=== PATIENT | female | born 1950 | race Caucasian/White ===

== ENCOUNTER 2019-01-30 08:58 | Day surgery (SDC) | payer MEDICARE ==
[2019-01-28 17:05] VITALS: BMI 36.8
[~2019-01-30 08:58] MED LIST: LACTATED RINGERS 1,000 ML IV SCH; LIDOCAINE 1% 20 ML VIAL (10MG/ML) FOR IV START INTRADERMA PRN
--- NOTE | 2019-01-30 10:00 | P.GSHP ---
History of Present Illness H&P Date: 01/30/19 CHIEF COMPLAINT: Colon screen HISTORY OF PRESENT ILLNESS: The patient is a 68-year-old female who presents for colon screen. Lower endoscopy was offered for further evaluation and management. PAST MEDICAL HISTORY: Please see list. PAST SURGICAL HISTORY: Please see list. MEDICATIONS: Please see list. ALLERGIES: Please see list. SOCIAL HISTORY: No illicit drug use FAMILY HISTORY: No reports of Crohn disease or ulcerative colitis. REVIEW OF ORGAN SYSTEMS: CONSTITUTIONAL: No reports of fevers or chills. PHYSICAL EXAM: VITAL SIGNS: Stable GENERAL: Well-developed pleasant in no acute distress. HEENT: No scleral icterus. Extraocular movements grossly intact. Moist buccal mucosa. NECK: Supple without lymphadenopathy. CHEST: Unlabored respirations. Equal bilateral excursions. CARDIOVASCULAR: Regular rate and rhythm. Distal 2+ pulses. ABDOMEN: Soft, nontender, nondistended. MUSCULOSKELETAL: No clubbing, cyanosis, or edema. ASSESSMENT: 1. Colon screen. PLAN: 1. Recommend proceeding with a lower endoscopy Past Medical History Past Medical History: Asthma, Cancer, CVA/TIA, Fibromyalgia, GERD/Reflux Additional Past Medical History / Comment(s): stroke age 41, TIA age 43-no residual effects, hx cervical cancer History of Any Multi-Drug Resistant Organisms: None Reported Past Surgical History: Hysterectomy, Orthopedic Surgery Additional Past Surgical History / Comment(s): rosana oophorectomy, sinus surgery, heel spur left foot, cyst removed from breast amd vagina, Past Anesthesia/Blood Transfusion Reactions: Previous Problems w/ Anesthesia Additional Past Anesthesia/Blood Transfusion Reaction / Comment(s): "takes a while to wake up" Smoking Status: Former smoker - Past Family History Mother Family Medical History: Cancer Sister(s) Family Medical History: Cancer, Deep Vein Thrombosis (DVT) Medications and Allergies Home Medications Medication Instructions Recorded Confirmed Type Aspirin [Adult Low Dose Aspirin EC] 81 mg PO HS 01/28/19 01/28/19 History Cyanocobalamin (Vitamin B-12) 1,000 mcg PO DAILY 01/28/19 01/28/19 History [Vitamin B-12] Fiber Pills 5 tab PO BID 01/28/19 01/28/19 History Gabapentin [Neurontin] 100 mg PO HS 01/28/19 01/28/19 History Lansoprazole [Prevacid] 30 mg PO DAILY 01/28/19 01/28/19 History Allergies Allergy/AdvReac Type Severity Reaction Status Date / Time No Known Allergies Allergy Verified 01/28/19 16:53
[2019-01-30] MEDS ORDERED: PROPOFOL 10 MG/ML 20 ML VIAL IV ONE (10:03)
--- NOTE | 2019-01-30 10:33 | P.PCN ---
Date of Procedure: 01/30/19 Description of Procedure: PREOPERATIVE DIAGNOSIS: Colonoscopy screening. Family history colon polyps POSTOPERATIVE DIAGNOSIS: Colonoscopy screening. Family history colon polyps Diverticulosis, sigmoid, severe OPERATION: Colonoscopy to the ileocecal valve and appendiceal orifice. SURGEON: Marsha Nicole MD. ANESTHESIA: MAC. INDICATIONS: The patient is a 68-year-old female who presents for colonoscopy screening. Last colonoscopy 10 years ago. Benefits and risks were described and informed consent was obtained. DESCRIPTION OF PROCEDURE: The patient had undergone Suprep. She had been brought into the operating room and laid in the left lateral decubitus position. After adequate intravenous sedation, the rectum was examined with 2% lidocaine jelly. External hemorrhoids were encountered. The rectal tone was within normal limits. No lesions were palpated in the rectal vault. An Olympus colonoscope was initially used however switched to a pediatric colonoscope for severe redundant sigmoid colon. The scope was advanced until the ileocecal valve and appendiceal orifice were clearly viewed. The prep was excellent with clear visualization of the mucosal folds. The scope was removed with visualization of each mucosal fold. Severe scattered diverticulosis was encountered. No colonic polyps were found. No evidence of focal colitis was found. Retroflexion of the scope demonstrated grade 1 internal hemorrhoids without active bleeding or inflammation. The colon was desufflated. The patient had tolerated the procedure well. Withdrawal time was over 6 minutes. FINDINGS: Aronchick preparation quality scale 1 (1-5) Internal hemorrhoids, grade 1 External prolapsed hemorrhoids, grade 1 Severe redundant sigmoid colon Moderate to severe sigmoid diverticulosis No arteriovenous malformations. No adenomatous polyps. No focal colitis. RECOMMENDATIONS: Lower endoscopy in 5 years, 2023 for family history of colon polyps Plan - Discharge Summary Discharge Rx Participant: No New Discharge Prescriptions: No Action Lansoprazole [Prevacid] 30 mg PO DAILY Gabapentin [Neurontin] 100 mg PO HS Fiber Pills 5 tab PO BID Cyanocobalamin (Vitamin B-12) [Vitamin B-12] 1,000 mcg PO DAILY Aspirin [Adult Low Dose Aspirin EC] 81 mg PO HS Discharge Medication List Aspirin [Adult Low Dose Aspirin EC] 81 mg PO HS 01/28/19 [History] Cyanocobalamin (Vitamin B-12) [Vitamin B-12] 1,000 mcg PO DAILY 01/28/19 [History] Fiber Pills 5 tab PO BID 01/28/19 [History] Gabapentin [Neurontin] 100 mg PO HS 01/28/19 [History] Lansoprazole [Prevacid] 30 mg PO DAILY 01/28/19 [History] Follow up Appointment(s)/Referral(s): Marsha Nicole MD [STAFF PHYSICIAN] - As Needed Patient Instructions/Handouts: Diverticulosis Diet (GEN), Diverticulosis (ED) Activity/Diet/Wound Care/Special Instructions: Repeat colonoscopy in 5 years2023 Discharge Disposition: HOME SELF-CARE
[2019-01-30 10:35] VITALS: RESP 16
[2019-01-30 11:03] VITALS: BP 121/67; PULSE 56
== END 2019-01-30 11:21 | disposition home or self-care (01) ==
LOC: ORWHC2ENDO 08:58
PROVIDERS: ATTEND Surgery Plastic and Reconstructive Surgery
DX: Z12.11 Encounter for screening for malignant neoplasm of colon (principal); K57.30 Diverticulosis of large intestine without perforation or abscess without bleeding; K64.8 Other hemorrhoids; Z83.71 Family history of colonic polyps; J45.909 Unspecified asthma, uncomplicated; K21.9 Gastro-esophageal reflux disease without esophagitis; M79.7 Fibromyalgia; Z79.82 Long term (current) use of aspirin; Z86.73 Personal history of transient ischemic attack (TIA), and cerebral infarction without residual deficits; Z87.891 Personal history of nicotine dependence; Z85.41 Personal history of malignant neoplasm of cervix uteri; Z79.899 Other long term (current) drug therapy
CPT/HCPCS: G0105; J2704

== ENCOUNTER 2020-11-06 08:21 | Day surgery (SDC) | payer MEDICARE ==
[2020-11-05 08:27] VITALS: BMI 33.4
[~2020-11-06 08:21] MED LIST changes: -LIDOCAINE 1% 20 ML VIAL (10MG/ML) FOR IV START INTRADERMA PRN
[2020-11-06 09:05] VITALS: RESP 16; TEMP 97.8
[2020-11-06] MEDS ORDERED: PROPOFOL 10 MG/ML 20 ML VIAL IV ONE (09:33)
[2020-11-06] MEDS ORDERED: LIDOCAINE 1% INJ 10MG/ML (20 ML MDV) ONE (09:33)
--- NOTE | 2020-11-06 09:45 | P.PCN ---
Date of Procedure: 11/06/20 Procedure(s) Performed: BRIEF HISTORY: Patient is a 70-year-old, pleasant, female scheduled for an upper endoscopy as a part of evaluation of reflux and history of GERD for the last several years duration. She was started on pantoprazole 40 mg daily recently PROCEDURE PERFORMED: Esophagogastroduodenoscopy. PREOPERATIVE DIAGNOSIS: long-standing history of GERD IV sedation per anesthesia. PROCEDURE: After informed consent was obtained, the patient was brought into the endoscopy unit. IV sedation was administered by Anesthesia under continuous monitoring. Initially the Olympus GIF-140 video endoscope was inserted into the mouth. Esophagus intubated without any difficulty. It was gradually advanced into the stomach and duodenum and carefully examined. The bulb and the second part of the duodenum appeared normal. The scope at this time was withdrawn to the stomach, adequately insufflated with air, and upon careful examination, mucosa of the antrum had scattered areas of erythema which was biopsied. Mucosa of the body, cardia and the fundus appeared normal. The scope was then withdrawn into the esophagus. The GE junction was located at 37 cm from the incisors. Small sliding-type a little hernia hernia noted. The esophagus appeared normal. There were no erosions or ulcerations seen and the patient tolerated the procedure well. IMPRESSION: 1. Mild antral gastritis. 2. Small sliding-type well hernia but no evidence of esophagitis. RECOMMENDATIONS: The findings of this examination were discussed with the patient as well as a family. She was advised to follow with the biopsy results. She will continue with Protonix 40 mg daily and continue to follow antireflux measures.
[2020-11-06 10:12] VITALS: BP 119/79; PULSE 66
== END 2020-11-06 10:26 | disposition home or self-care (01) ==
LOC: ORWHC2ENDO 08:21
PROVIDERS: ATTEND Internal Medicine Gastroenterology
DX: K21.9 Gastro-esophageal reflux disease without esophagitis (principal); K29.50 Unspecified chronic gastritis without bleeding; Z79.82 Long term (current) use of aspirin; Z79.899 Other long term (current) drug therapy; J45.909 Unspecified asthma, uncomplicated; Z87.891 Personal history of nicotine dependence; Z86.73 Personal history of transient ischemic attack (TIA), and cerebral infarction without residual deficits
CPT/HCPCS: 88305; 43239; J2001; J2704

== ENCOUNTER → 2021-01-17 | Outpatient (CLI) | payer MEDICARE ==
--- NOTE | 2021-01-17 09:54 | MR ---
EXAMINATION TYPE: MR brain wo con DATE OF EXAM: 01/17/2021 COMPARISON: CT brain October 26, 2011 HISTORY: Dizziness. TECHNIQUE: Multiplanar, multisequence imaging of the brain and brainstem is performed without IV cont rast. FINDINGS: Diffusion weighted images demonstrate no evidence of a recent infarct or other diffusion abnormality. The ventricular system and cisternal spaces are normal in size and appearance. The brain volume is a ge appropriate. Occasional scattered focus of T2 hyperintensity, less than 5 lesions are present. Midline structures demonstrate normal morphology. The craniocervical junction appears within normal limits. Normal vascular flow voids are present. The visualized sinuses are clear and the globes are i ntact. Patchy increased T2 signal right mastoid air cells are now present. IMPRESSION: New increased fluid signal right mastoid air cells raises concern for right-sided mastoid itis, correlate clinically.
== END | disposition home or self-care (01) ==
LOC: RADMRIMAIN 09:13
PROVIDERS: ATTEND Family Medicine
DX: R42 Dizziness and giddiness (principal); R03.0 Elevated blood-pressure reading, without diagnosis of hypertension
CPT/HCPCS: 70551

== ENCOUNTER → 2021-01-21 | Outpatient (CLI) | payer MEDICARE ==
--- NOTE | 2021-01-22 10:31 | ECHOF ---
Referral Reason:R07.9 chest pain, unspecified MEASUREMENTS -------- HEIGHT: 127.0 cm WEIGHT: 72.6 kg BP: RVIDd: 2.4 cm (< 3.3) IVSd: 1.0 cm (0.6 - 1.1) LVIDd: 2.9 cm (3.9 - 5.3) LVPWd: 1.1 cm (0.6 - 1.1) IVSs: 1.4 cm LVIDs: 1.7 cm LVPWs: 1.7 cm LAESV Index (A-L): 23.05 ml/m Ao Diam: 2.7 cm (2.0 - 3.7) AV Cusp: 1.3 cm (1.5 - 2.6) LA Diam: 2.5 cm (2.7 - 3.8) MV EXCURSION: 12.451 mm (> 18.000) MV EF SLOPE: 54 mm/s (70 - 150) EPSS: 0.5 cm MV E Lee: 0.86 m/s MV DecT: 178 ms MV A Lee: 0.84 m/s MV E/A Ratio: 1.02 RAP: 5.00 mmHg RVSP: 17.98 mmHg FINDINGS -------- This was a technically good study. The left ventricular size is normal. Left ventricular wall thickness is normal. Overall left vent ricular systolic function is normal with, an EF between 55 - 60 %. Normal LAP. Grade 1 Diastolic Dy sfunction. The right ventricle is normal in size. The left atrial size is normal. Normal LA size by volume 22+/-6 ml/m2. The right atrial size is normal. The aortic valve is trileaflet and appears structurally normal. The mitral valve is normal. Mild mitral regurgitation is present. The tricuspid valve appears structurally normal. Mild tricuspid regurgitation present. Right vent ricular systolic pressure is normal at < 35 mmHg. There is no pulmonic regurgitation present. The aortic root size is normal. Normal inferior vena cava with normal inspiratory collapse consistent with estimated right atrial pre ssure of 5 mmHg. There is no pericardial effusion. CONCLUSIONS -------- 1. The left ventricular size is normal. 2. Left ventricular wall thickness is normal. 3. Overall left ventricular systolic function is normal with, an EF between 55 - 60 %. 4. Normal LAP. Grade 1 Diastolic Dysfunction. 5. Mild mitral regurgitation is present. 6. Mild tricuspid regurgitation present. 7. There is no pericardial effusion. LOCOMOTIVE ENGINEER: Nataly Mcfadden RDCS
== END | disposition home or self-care (01) ==
LOC: RADECHMAIN 14:45
PROVIDERS: ATTEND Family Medicine
DX: I07.1 Rheumatic tricuspid insufficiency (principal); I34.0 Nonrheumatic mitral (valve) insufficiency
CPT/HCPCS: 93306

== ENCOUNTER → 2021-09-22 | Outpatient (CLI) | payer MEDICARE ==
--- NOTE | 2021-09-23 08:05 | CT ---
EXAMINATION TYPE: CT abdomen pelvis wo/w con DATE OF EXAM: 09/22/2021 COMPARISON: None HISTORY: fistula of intestine CT DLP: 2391 mGycm CONTRAST: CT scan of the abdomen and pelvis is performed with Oral Contrast and with IV Contrast, patient injec kyra with 100ml mL of Isovue 300. FINDINGS: LUNG BASES-: No visible nodule. No infiltrate. LIVER/GB: No calcified gallstones. No space occupying hepatic lesion. Biliary tree is of normal ca liber. PANCREAS: No inflammation. No distinct mass. SPLEEN: No splenic enlargement. No lesion seen. ADRENALS: No nodule. No thickening. KIDNEYS/BLADDER: No hydronephrosis. No nephrolithiasis. 1.5 cm left renal cyst. Urinary bladder ekta ssly unremarkable. BOWEL: Normal appendix. There is a large fixed hiatal hernia. There is an adherent loop of sigmoid c olon with the urinary bladder to the left of midline at its dome. There is associated wall thickening of the urinary bladder wall however I do not see air or contrast within the urinary bladder at this time. Developing fistula is difficult to exclude. No evidence for active diverticulitis. Sigmoid dive rticulosis. Gastrointestinal tract is of normal caliber. Appendix not clearly visualized. GENITAL ORGANS: No gross abnormality. LYMPH NODES: No greater than 1cm abdominal or pelvic lymph nodes are appreciated. AORTA: No significant abnormality. OSSEOUS STRUCTURES: No significant abnormality is seen. OTHER: No significant additional abnormality is seen. IMPRESSION: 1. There is an adherent loop of sigmoid colon with the urinary bladder to the left of midline at its dome. There is associated wall thickening of the urinary bladder wall however I do not see air or con trast within the urinary bladder at this time. Developing fistula is difficult to exclude. 2. Large fixed hiatal hernia.
== END | disposition home or self-care (01) ==
LOC: RADCTMAIN 12:47
PROVIDERS: ATTEND Internal Medicine Gastroenterology
DX: Z01.818 Encounter for other preprocedural examination (principal); K63.2 Fistula of intestine
CPT/HCPCS: 82565; 84520; 74178; 36415; Q9967

== ENCOUNTER 2021-11-22 12:44 | Day surgery (SDC) | payer MEDICARE ==
[~2021-11-22 12:44] MED LIST changes: +LIDOCAINE 1% (10MG/ML) FOR IV START INTRADERMA PRN
[2021-11-22 13:14] VITALS: TEMP 98
[2021-11-22] MEDS ORDERED: LIDOCAINE 2% INJ 20 MG/ML (2 ML VIAL) ONE (13:53)
[2021-11-22] MEDS ORDERED: PROPOFOL 10 MG/ML 20 ML VIAL IV ONE (13:53)
--- NOTE | 2021-11-22 14:14 | P.GSHP ---
History of Present Illness H&P Date: 11/22/21 Chief Complaint: ,Gerd, Diverticulitis This 71-year-old female presents today for EGD and colonoscopy. Issues with GERD and diverticulitis. Past Medical History Past Medical History: Asthma, Cancer, CVA/TIA, Fibromyalgia, GERD/Reflux, Osteoarthritis (OA) Additional Past Medical History / Comment(s): problems swallowing with freq. burping, hx. diverticulitis-hospitalized in May in [place], "they found a gr owth" per pt., rectal bldg sometimes & has found "feces" in urine @times,. stroke age 41, TIA age 43-no residual effects, hx cervical cancer History of Any Multi-Drug Resistant Organisms: None Reported Past Surgical History: Hysterectomy, Orthopedic Surgery Additional Past Surgical History / Comment(s): rosana oophorectomy, sinus surgery, heel spur left foot, cyst removed from breast and vagina, colonoscopy, Past Anesthesia/Blood Transfusion Reactions: Previous Problems w/ Anesthesia Additional Past Anesthesia/Blood Transfusion Reaction / Comment(s): "takes a while to wake up" Smoking Status: Former smoker - Past Family History Mother Family Medical History: Cancer Sister(s) Family Medical History: Cancer, Deep Vein Thrombosis (DVT) Medications and Allergies Home Medications Medication Instructions Recorded Confirmed Type Aspirin [Adult Low Dose Aspirin EC] 81 mg PO HS 01/28/19 11/22/21 History Fiber Pills 5 tab PO BID 01/28/19 11/22/21 History Gabapentin [Neurontin] 100 mg PO TID 01/28/19 11/22/21 History Calcium + Vit D3 1,200 mg PO BID 11/05/20 11/22/21 History Pantoprazole Sodium 40 mg PO DAILY 11/05/20 11/22/21 History Vitamin B Complex 1 each PO DAILY 11/05/20 11/22/21 History Allergies Allergy/AdvReac Type Severity Reaction Status Date / Time No Known Allergies Allergy Verified 11/22/21 13:07 Surgical - Exam Vital Signs Temp Pulse Resp BP Pulse Ox 98.0 F 81 16 172/81 99 11/22/21 13:12 11/22/21 13:12 11/22/21 13:12 11/22/21 13:12 11/22/21 13:12 - General well developed, well nourished, no distress - Eyes PERRL - ENT normal pinna - Neck no masses - Respiratory normal expansion - Cardiovascular Rhythm: regular - Abdomen Abdomen: soft, non tender Assessment and Plan Assessment: Gerd, diverticulitis. We'll perform EGD and colonoscopy
--- NOTE | 2021-11-22 14:22 | P.OP ---
Date of Procedure: 11/22/21 Preoperative Diagnosis: diverticulitis GERD Postoperative Diagnosis: Gastritis Hiatal hernia Esophagitis Diverticulitis Procedure(s) Performed: egd Colonoscopy Anesthesia: MAC Surgeon: Guido Shabazz Pathology: other (antrum,esophagus) Condition: stable Disposition: PACU Description of Procedure: Based on the endoscopy table in the lateral position. She received IV sedation. The gastroscope placed oropharynx passed in the esophagus and stomach. Scope was then placed through the pylorus. First and second portion of the duodenum appeared normal. Scope was then brought back the antrum was mildly inflamed. A biopsies performed. The scope was then retroflexed and there was a moderate size hiatal hernia. The GE junction was at 38 cm. The distal esophagus inflamed this area is biopsied. The proximal esophagus appeared normal. Scope withdrawn for patient. Next digital rectal exam was performed. This revealed no ebonized. Flexible colonoscope was then placed patient anus passed with colon. Scope was passed beyond the left colon secondary to tortuosity valve. Scope was brought back in the sigmoid colon there is extensive diverticular changes. The scope was brought back the rectum and this appeared normal. Scope withdrawn for patient.
[2021-11-22 14:44] VITALS: BP 122/69; PULSE 78; RESP 20
== END 2021-11-22 15:17 ==
LOC: ORWHC2ENDO 12:44
PROVIDERS: ATTEND Surgery
DX: K21.9 Gastro-esophageal reflux disease without esophagitis (principal); K29.50 Unspecified chronic gastritis without bleeding; K44.9 Diaphragmatic hernia without obstruction or gangrene; K57.30 Diverticulosis of large intestine without perforation or abscess without bleeding; J45.909 Unspecified asthma, uncomplicated; M19.90 Unspecified osteoarthritis, unspecified site; M79.7 Fibromyalgia; Z87.891 Personal history of nicotine dependence; Z86.73 Personal history of transient ischemic attack (TIA), and cerebral infarction without residual deficits; Z79.82 Long term (current) use of aspirin; Z79.899 Other long term (current) drug therapy
CPT/HCPCS: 88305; 45378; 43239; J2704; J2001

== ENCOUNTER → 2021-11-30 | Outpatient (CLI) | payer MEDICARE | END | disposition home or self-care (01) | LOC: LABWHC1 15:32 | PROVIDERS: ATTEND Surgery | DX: Z53.9 Procedure and treatment not carried out, unspecified reason (principal) ==

== ENCOUNTER 2021-12-06 07:11 | Observation (INO) | payer MEDICARE ==
[2021-11-30 16:10] LABS: Basophils # (A) 0.1 k/uL (0-0.2); Basophils % (A) 1 %; Eosinophils # (A) 0.2 k/uL (0-0.7); Eosinophils % (A) 2 %; HCT 37.6 % (34.0-46.0); HGB 12.5 gm/dL (11.4-16.0); Lymphocytes # (A) 2.1 k/uL (1.0-4.8); Lymphocytes % (A) 25 %; MCH 32.6 pg (25.0-35.0); MCHC 33.3 g/dL (31.0-37.0); MCV 97.9 fL (80.0-100.0); Mean Platelet Volume 7.3; Monocytes # (A) 0.5 k/uL (0-1.0); Monocytes % (A) 5 %; Neutrophils # (A) 5.4 k/uL (1.3-7.7); Neutrophils % (A) 65 %; Platelet Count 261 k/uL (150-450); RBC 3.84 m/uL (3.80-5.40); RDW 12.3 % (11.5-15.5); WBC 8.3 k/uL (3.8-10.6)
[~2021-12-06 07:11] MED LIST changes: +ACETAMINOPHEN TAB 500 MG TAB PO PRN; +HEPARIN SODIUM,PORCINE/PF 5,000 UNIT/0.5 ML SYRINGE SQ PRN; -LACTATED RINGERS 1,000 ML IV SCH; -LIDOCAINE 1% (10MG/ML) FOR IV START INTRADERMA PRN
[2021-12-06] MEDS ORDERED: ONDANSETRON 4 MG/2 ML VIAL IVP ONE (07:31)
[2021-12-06] MEDS ORDERED: LIDOCAINE 1% (10MG/ML) FOR IV START INTRADERMA PRN (07:31)
[2021-12-06] MEDS ORDERED: DEXAMETHASONE SOD PHOSPHATE 4 MG/ML 1 ML VIAL IV ONE (07:31)
[2021-12-06] MEDS ORDERED: HYDROmorphone 0.5 MG/0.5 ML SYRINGE IVP PRN (07:31)
[2021-12-06] MEDS: LACTATED RINGERS 1,000 ML IV SCH (07:51)
--- NOTE | 2021-12-06 08:49 | P.GSHP ---
History of Present Illness H&P Date: 12/06/21 Chief Complaint: GERD This a 8-year-old female who on standing history of GERD. Patient rents today for laparoscopic Tahira fundoplication. Patient's aware the risks of surgery including recurrent GERD symptoms dysphagia and gastric injury Past Medical History Past Medical History: Asthma, Cancer, CVA/TIA, Fibromyalgia, GERD/Reflux, Osteoarthritis (OA) Additional Past Medical History / Comment(s): occ diff swallowing with freq. burping, hx. diverticulitis, "they found a growth on bowels" per pt., rectal bleeding sometimes & has found "feces" in urine @times, TIA x 2 age 43-no residual effects, hx cervical cancer, hx migraines, hiatal hernia, hx ulcer age 22, osteoporosis, History of Any Multi-Drug Resistant Organisms: None Reported Past Surgical History: Breast Surgery, Hysterectomy, Orthopedic Surgery Additional Past Surgical History / Comment(s): rosana oophorectomy, sinus surgery, heel spur left foot, cyst removed from rt breast and vagina, colonoscopy,EGD Past Anesthesia/Blood Transfusion Reactions: Previous Problems w/ Anesthesia Additional Past Anesthesia/Blood Transfusion Reaction / Comment(s): "takes a while to wake up" Smoking Status: Former smoker - Past Family History Mother Family Medical History: Cancer Additional Family Medical History / Comment(s): breast Sister(s) Family Medical History: Cancer Additional Family Medical History / Comment(s): breast Brother(s) Family Medical History: Deep Vein Thrombosis (DVT) Medications and Allergies Home Medications Medication Instructions Recorded Confirmed Type Aspirin [Adult Low Dose Aspirin EC] 81 mg PO HS 01/28/19 12/01/21 History Gabapentin [Neurontin] 100 mg PO TID PRN 01/28/19 12/06/21 History Pantoprazole Sodium 40 mg PO DAILY 11/05/20 12/06/21 History Vitamin B Complex 1 each PO DAILY 11/05/20 12/06/21 History Budesonide-Formot 160-4.5 Mcg 2 puff INHALATION BID PRN 12/01/21 12/06/21 History [Symbicort 160-4.5 Mcg Inhaler] Calcium Carbonate [Calcium] 1,200 mg PO BID 12/01/21 12/06/21 History Cholecalciferol [Vitamin D3 (125 125 mcg PO DAILY 12/01/21 12/06/21 History Mcg = 5000 Iu)] Fiber Cap 600 mg PO BID 12/01/21 12/06/21 History Allergies Allergy/AdvReac Type Severity Reaction Status Date / Time No Known Allergies Allergy Verified 12/06/21 07:31 Surgical - Exam Vital Signs Temp Pulse Resp BP Pulse Ox 98.4 F 71 16 163/77 97 12/06/21 07:37 12/06/21 07:37 12/06/21 07:37 12/06/21 07:37 12/06/21 07:37 - General well developed, well nourished, no distress - Eyes PERRL - ENT normal pinna - Neck no masses - Respiratory normal expansion - Cardiovascular Rhythm: regular - Abdomen Abdomen: soft, non tender Results - Labs 11/30/21 15:47 Assessment and Plan Assessment: GERD. We'll perform laparoscopic Tahira fundoplication.
[2021-12-06] MEDS ORDERED: MIDAZOLAM 2 MG/2 ML VIAL ONE (09:11)
[2021-12-06] MEDS ORDERED: fentaNYL (PF) 50 MCG/ML 2 ML AMP ONE (09:11)
[2021-12-06] MEDS ORDERED: LIDOCAINE 2% INJ 20 MG/ML (2 ML VIAL) ONE (09:11)
[2021-12-06] MEDS ORDERED: NEOSTIGMINE 1 MG/ML 10 ML VIAL ONE (09:11)
[2021-12-06] MEDS ORDERED: ROCURONIUM 10 MG/ML (5 ML VIAL) IV ONE (09:11)
[2021-12-06] MEDS ORDERED: SUCCINYLCHOLINE CHLORIDE 200 MG/10 ML VIAL IV ONE (09:11)
[2021-12-06] MEDS ORDERED: GLYCOPYRROLATE 0.2 MG/ML 2 ML VIAL ONE (09:11)
[2021-12-06] MEDS ORDERED: ePHEDrine 50 MG/ML 1 ML VIAL ONE (09:11)
[2021-12-06] MEDS ORDERED: PROPOFOL 10 MG/ML 20 ML VIAL IV ONE (09:11)
[2021-12-06] MEDS ORDERED: BUPIVACAIN-EPI 0.25%-1:200,000 30 ML VIAL SQ ONE (09:38)
[2021-12-06] MEDS ORDERED: ONDANSETRON 4 MG/2 ML VIAL IVP PRN (10:22)
--- NOTE | 2021-12-06 10:22 | P.OP ---
Date of Procedure: 12/06/21 Preoperative Diagnosis: GERD Postoperative Diagnosis: GERD Procedure(s) Performed: Laparoscopic Tahira fundal plication Anesthesia: GARRETT Surgeon: Guido Shabazz Estimated Blood Loss (ml): 5 Pathology: none sent Condition: stable Disposition: PACU Description of Procedure: Horacio patient was placed on the operating table in the supine position. The patient received general anesthesia. And was placed in dorsal lithotomy position. The patient was prepped and draped in the usual sterile fashion. The skin incision sites were anesthetized with 1% local Xylocaine. The skin was incised in the left periumbilical area and then using a blade less 5 mm trocar under direct visualization panel cavity was entered. After adequate insufflation the laparoscope was then placed into the peritoneal cavity. Next a 5 mm trochars placed in the right epigastric position. Another 5 millimeter trocar the right lateral position. Another 5 millimeter trocar in the left lateral position a 5 mm trocar is placed in the left epigastric position. And then the initial 5 mm trocar was exchanged for a 10 mm trocar. The left lateral lobe liver was retracted. The hernia was seen. The crural defect was then dissected using the Harmonic scissors device. A 360 crural dissection was performed the esophagus stomach was reduced back into the peritoneal Cavity. The crural defect was then closed using 2-0 Ethibond suture. Next the fundus of the stomach was mobilized using the Muddy scissors device. and then a 58- Portuguese bougie dilator was placed oropharynx passed into the esophagus and stomach the fundal plication wrap was then performed by grasping the fundus pos teriorly and bringing it around the esophagus and stomach fundoplication was then performed using 2-0 Ethibond suture. Care was taken that the fundal location rested over top of the intra-abdominal esophagus. There was no injury seen to the stomach or esophagus. The dilator was then withdrawn. The abdomen was irrigated there is no bleeding seen. The trochars were then withdrawn and then skin incision sites were closed using 3-0 Monocryl suture Steri-Strips are applied. Patient thought procedure well and sent to recovery room in stable condition.
[2021-12-06] MEDS ORDERED: KETOROLAC 15 MG/ML 1 ML VIAL IVP ONE (12:10)
[2021-12-06] MEDS: D5-0.45% NACL WITH KCL 20MEQ/L 1,000 ML IV SCH ×2 (13:28→21:27)
[2021-12-06] MEDS: HYDROmorphone 1 MG/ML 1 ML SYRINGE IVP PRN ×3 (13:28→21:25)
[2021-12-06 16:29] VITALS: BMI 33.5
--- NOTE | 2021-12-06 17:37 | P.CONS ---
History of Present Illness - Reason for Consult Consult date: 12/06/21 fibromyalgia Requesting physician: Guido Shabazz - Chief Complaint GERD - History of Present Illness Patient is a 71-year-old female history of GERD, fibromyalgia, and migraine headaches who presented for Tahira fundoplication. Patient seen and examined at bedside. She is having significant feelings of chest fullness and belching since surgery. She feels slightly nauseated. She states she is dealing with acid reflux for years. His first follow with her primary care physician and tried multiple antacids without relief. She then saw Dr. Koch who referred her to Dr. Willams for the Tahira. She reports that she had an EGD and colonoscopy done last week. They also did found a "mass" on her bowels. She states that since her colonoscopy she has been having intermittent diarrhea. She otherwise denies any fevers, chills, she has a chronic cough which is on change. She states she does not take Symbicort regularly at home and has not used in quite some time. She denies any issues with her asthma. Pertinent positives and negatives as discussed in HPI, a complete review of systems was performed and all other systems are negative. Vital signs reviewed General: nontoxic, mild distress due to pain, appears at stated age Derm: warm, dry Head: atraumatic, normocephalic, symmetric Eyes: EOMI, no lid lag, anicteric sclera, pupils equal round reactive to light ENT: Nose and ears atraumatic, no thrush, no pharyngeal erythema Neck: No thyromegaly, no cervical lymphadenopathy, trachea midline, supple Mouth: no lip lesion, mucus membranes moist Cardiovascular: S1S2 reg, no murmur, positive posterior tibial pulse bilateral, no edema, capillary refill less than 2 seconds Lungs: Decreased bs bilateral, no rhonchi, no rales, no wheeze, no accessory m uscle use Abdominal: soft, nontender to palpation, no guarding, no appreciable organomegaly, normal bowel sounds Ext: no gross muscle atrophy, no contractures Neuro: CN II-XII grossly intact, no tremors, no focal neuro deficits. Psych: Alert, oriented, appropriate affect Assessment/Plan: Severe GERD s/p Nissina fundoplication - managemetn per surgery - on clear liquid diet Fibromyalgia - hold gabapentin for now due to nausea and eructations Ashtma without exacerbation - prn bronchdilators Obesity with BMI 33.5 - structured outaptient weight loss Colonic abnormality -Patient wishes following up with Dr. Shabazz on an outpatient basis. 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 Do not hesitate to contact us with questions. Someone can be reached from the [facility] hospitalist group all hours of the day at [phone] or via [employer]. Past Medical History Past Medical History: Asthma, Cancer, CVA/TIA, Fibromyalgia, GERD/Reflux, Osteoarthritis (OA) Additional Past Medical History / Comment(s): occ diff swallowing with freq. burping, hx. diverticulitis, "they found a growth on bowels" per pt., rectal bleeding sometimes & has found "feces" in urine @times, TIA x 2 age 43-no residual effects, hx cervical cancer, hx migraines, hiatal hernia, hx ulcer age 22, osteoporosis, History of Any Multi-Drug Resistant Organisms: None Reported Past Surgical History: Breast Surgery, Hysterectomy, Orthopedic Surgery Additional Past Surgical History / Comment(s): rosana oophorectomy, sinus surgery, heel spur left foot, cyst removed from rt breast and vagina, colonoscopy,EGD Past Anesthesia/Blood Transfusion Reactions: Previous Problems w/ Anesthesia Additional Past Anesthesia/Blood Transfusion Reaction / Comm: "takes a while to wake up" Smoking Status: Former smoker - Past Family History Mother Family Medical History: Cancer Additional Family Medical History / Comment(s): breast Sister(s) Family Medical History: Cancer Additional Family Medical History / Comment(s): breast Brother(s) Family Medical History: Deep Vein Thrombosis (DVT) Medications and Allergies Home Medications Medication Instructions Recorded Confirmed Type Aspirin [Adult Low Dose Aspirin EC] 81 mg PO HS 01/28/19 12/01/21 History Gabapentin [Neurontin] 100 mg PO TID PRN 01/28/19 12/06/21 History Pantoprazole Sodium 40 mg PO DAILY 11/05/20 12/06/21 History Vitamin B Complex 1 each PO DAILY 11/05/20 12/06/21 History Budesonide-Formot 160-4.5 Mcg 2 puff INHALATION BID PRN 12/01/21 12/06/21 History [Symbicort 160-4.5 Mcg Inhaler] Calcium Carbonate [Calcium] 1,200 mg PO BID 12/01/21 12/06/21 History Cholecalciferol [Vitamin D3 (125 125 mcg PO DAILY 12/01/21 12/06/21 History Mcg = 5000 Iu)] Fiber Cap 600 mg PO BID 12/01/21 12/06/21 History Allergies Allergy/AdvReac Type Severity Reaction Status Date / Time No Known Allergies Allergy Verified 12/06/21 07:31 Physical Exam Osteopathic Statement: *. No significant issues noted on an osteopathic structural exam other than those noted in the History and Physical/Consult. Vitals: Vital Signs Temp Pulse Pulse Resp BP BP Pulse Ox 12/06/21 14:40 58 L 18 130/74 99 12/06/21 14:25 98 18 136/77 98 12/06/21 14:10 55 L 18 124/74 99 12/06/21 13:55 57 L 18 137/74 99 12/06/21 13:40 60 16 134/83 98 12/06/21 12:50 97.9 F 57 L 18 155/85 97 12/06/21 11:45 54 L 17 146/65 100 12/06/21 11:30 78 16 149/72 97 12/06/21 11:15 53 L 16 158/70 99 12/06/21 11:00 54 L 16 155/70 95 12/06/21 10:45 67 16 156/70 100 12/06/21 10:31 97.1 F L 55 L 16 181/71 100 12/06/21 07:37 98.4 F 71 16 163/77 97 Intake and Output 12/06/21 12/06/21 12/06/21 06:59 14:59 22:59 Intake Total 750 1580 Output Total 5 Balance 745 1580 Intake: IV 750 Intake, IV Titration 1000 Amount D5-0.45% NaCl with KCl 1000 20Meq/l 1,000 ml @ 125 mls/hr IV .Q8H [facility] Rx#: [id number] Oral 580 Output: Estimated Blood Loss 5 Other: # Voids 1 Weight 72.8 kg 72.8 kg Results CBC & Chem 7: 11/30/21 15:47
[2021-12-06 19:24] VITALS: RESP 16
[2021-12-06] MEDS ORDERED: ALBUTEROL NEBULIZED 2.5 MG/3 ML INHALATION PRN (20:06)
[2021-12-07] MEDS: HYDROmorphone 1 MG/ML 1 ML SYRINGE IVP PRN ×3 (01:46→11:29)
[2021-12-07] MEDS: D5-0.45% NACL WITH KCL 20MEQ/L 1,000 ML IV SCH ×2 (05:46→14:33)
[2021-12-07] MEDS ORDERED: GABAPENTIN 100 MG CAP PO PRN (08:41)
[2021-12-07] MEDS ORDERED: ENOXAPARIN 40 MG/0.4 ML SYRINGE SQ SCH (09:00)
[2021-12-07] MEDS ORDERED: HYDROcodone/APAP 5-325MG 1 EACH TAB PO PRN (12:22)
--- NOTE | 2021-12-07 12:29 | P.DS ---
Providers Date of admission: 12/06/21 07:11 Expected date of discharge: 12/07/21 Attending physician: Guido Shabazz Consults: 12/06/21 12:12 Consult Physician Routine Consulting Provider: Shaquille Rivers Consult Reason/Comments: medical management Do you want consulting provider notified?: Yes Primary care physician: Renny [facility] Course: Discharge diagnosis 1. GERD status post laparoscopic Tahira fundoplication Hospital course This is a 71-year-old female with a known history of GERD. She is status post laparoscopic Tahira complication. She tolerated surgery well. She is tolerating liquid diet. Her pain is controlled. She is up and ambulating. She is afebrile. She is stable for discharge. Please refer to chart for any further details. Physician Immigration Consultant note has been reviewed by physician. Signing provider agrees with the documented findings, assessment, and plan of care. Patient Condition at Discharge: Stable Plan - Discharge Summary Discharge Rx Participant: Yes New Discharge Prescriptions: New HYDROcodone/APAP 5-325MG [[place] 5-325] 1 tab PO Q6HR PRN 3 Days #12 tab PRN Reason: Pain Continue Gabapentin [Neurontin] 100 mg PO TID PRN PRN Reason: Pain Aspirin [Adult Low Dose Aspirin EC] 81 mg PO HS Cholecalciferol [Vitamin D3 (125 Mcg = 5000 Iu)] 125 mcg PO DAILY Calcium Carbonate [Calcium] 1,200 mg PO BID Pantoprazole Sodium 40 mg PO DAILY Vitamin B Complex 1 each PO DAILY Fiber Cap 600 mg PO BID Budesonide-Formot 160-4.5 Mcg [Symbicort 160-4.5 Mcg Inhaler] 2 puff INHALATION BID PRN PRN Reason: sob Discharge Medication List Aspirin [Adult Low Dose Aspirin EC] 81 mg PO HS 01/28/19 [History] Gabapentin [Neurontin] 100 mg PO TID PRN 01/28/19 [History] Pantoprazole Sodium 40 mg PO DAILY 11/05/20 [History] Vitamin B Complex 1 each PO DAILY 11/05/20 [History] Budesonide-Formot 160-4.5 Mcg [Symbicort 160-4.5 Mcg Inhaler] 2 puff INHALATION BID PRN 12/01/21 [History] Calcium Carbonate [Calcium] 1,200 mg PO BID 12/01/21 [History] Cholecalciferol [Vitamin D3 (125 Mcg = 5000 Iu)] 125 mcg PO DAILY 12/01/21 [History] Fiber Cap 600 mg PO BID 12/01/21 [History] HYDROcodone/APAP 5-325MG [[place] 5-325] 1 tab PO Q6HR PRN 3 Days #12 tab 12/07/21 [Rx] Follow up Appointment(s)/Referral(s): Guido Shabazz MD [STAFF PHYSICIAN] - 1 Week Activity/Diet/Wound Care/Special Instructions: No driving while taking [place] No lifting over 10 pounds Shower daily. No soaking or tub baths for 2 weeks Very light activity until you are reevaluated at your follow up appointment with your surgeon Continue full liquid diet No straws or carbonated beverages Discharge Disposition: HOME SELF-CARE
[2021-12-07 13:24] VITALS: BP 131/70; PULSE 63; TEMP 98
[2021-12-07] MEDS: LACTATED RINGERS 1,000 ML IV SCH (14:32)
== END 2021-12-07 14:34 | disposition home or self-care (01) ==
LOC: INTOOBSV 07:11 → 2ORMAIN 07:11 → EDSTATUS 08:35 → 5NMEDONC 10:42
PROVIDERS: ADMIT Surgery; ATTEND Surgery
DX: K21.00 Gastro-esophageal reflux disease with esophagitis, without bleeding (principal); K44.9 Diaphragmatic hernia without obstruction or gangrene; R05.3 Chronic cough; M79.7 Fibromyalgia; J45.909 Unspecified asthma, uncomplicated; M19.90 Unspecified osteoarthritis, unspecified site; Z87.19 Personal history of other diseases of the digestive system; Z85.41 Personal history of malignant neoplasm of cervix uteri; Z86.73 Personal history of transient ischemic attack (TIA), and cerebral infarction without residual deficits; M81.0 Age-related osteoporosis without current pathological fracture; G43.909 Migraine, unspecified, not intractable, without status migrainosus; Z90.710 Acquired absence of both cervix and uterus; Z90.722 Acquired absence of ovaries, bilateral; Z98.890 Other specified postprocedural states; Z87.891 Personal history of nicotine dependence; Z80.3 Family history of malignant neoplasm of breast; Z82.49 Family history of ischemic heart disease and other diseases of the circulatory system; Z79.82 Long term (current) use of aspirin; Z79.51 Long term (current) use of inhaled steroids; Z79.899 Other long term (current) drug therapy
CPT/HCPCS: 85025; 93005; 43280; G0378; J2250; J0330; J1100; J2710; J0690; J2405; J1650; J3010; J1170 ×3; J1885; J2704; J1644; J2001

== ENCOUNTER → 2022-01-17 | Outpatient (CLI) | payer MEDICARE ==
[2022-01-17 14:37] LABS: Basophils # (A) 0.05 X 10*3/uL (0.00-0.10); Basophils % (A) 0.7 %; Eosinophils # (A) 0.16 X 10*3/uL (0.04-0.35); Eosinophils % (A) 2.3 %; HCT 38.8 % (37.2-46.3); HGB 12.9 g/dL (12.0-15.0); Immature Grans, Automated 0.3 %; Lymphocytes # (A) 1.87 X 10*3/uL (0.90-5.00); Lymphocytes % (A) 26.9 %; MCH 32.8 pg (27.0-32.0); MCHC 33.2 g/dL (32.0-37.0); MCV 98.7 fL (80.0-97.0); Mean Platelet Volume 10.1 fL (9.5-12.2); Monocytes # (A) 0.53 X 10*3/uL (0.20-1.00); Monocytes % (A) 7.6 %; NRBC Per 100 WBC 0 /100 WBCS (0.0-0.0); Neutrophils # (A) 4.31 X 10*3/uL (1.80-7.70); Neutrophils % (A) 62.2 %; Platelet Count 235 X 10*3/uL (140-440); RBC 3.93 X 10*6/uL (4.10-5.20); RDW 13.2 % (11.5-14.5); WBC 6.94 X 10*3/uL (4.50-10.00)
[2022-01-17 15:29] LABS: Anion Gap 10.4 mmol/L (10.00-18.00); Carbon Dioxide 26.6 mmol/L (20.0-27.5)
== END | disposition home or self-care (01) ==
LOC: LABPAT 01-14 08:09
PROVIDERS: ATTEND Surgery
DX: Z01.812 Encounter for preprocedural laboratory examination (principal); Z01.818 Encounter for other preprocedural examination; K57.32 Diverticulitis of large intestine without perforation or abscess without bleeding
CPT/HCPCS: 36415; 80051; 85025; 93005

== ENCOUNTER 2022-01-26 08:30 | Inpatient (IN) | payer MEDICARE ==
[~2022-01-26 08:30] MED LIST changes: +DEXAMETHASONE SOD PHOSPHATE 4 MG/ML 1 ML VIAL IV ONE; +HYDROmorphone 0.5 MG/0.5 ML SYRINGE IVP PRN; +ONDANSETRON 4 MG/2 ML VIAL IVP ONE; +metroNIDAZOLE-NS PMX 500 MG in SALINE 1 100ML.BAG IVPB PRN
[2022-01-26] MEDS: LACTATED RINGERS 1,000 ML IV SCH (09:08)
[2022-01-26] MEDS ORDERED: MIDAZOLAM 2 MG/2 ML VIAL IVP ONE ×2 (09:41→09:45)
[2022-01-26] MEDS ORDERED: fentaNYL (PF) 50 MCG/ML 2 ML AMP IVP ONE ×2 (09:42→09:46)
--- NOTE | 2022-01-26 09:42 | P.GSHP ---
History of Present Illness H&P Date: 01/26/22 Chief Complaint: History of diverticulitis This is a 71-year-old female who presents today for low anterior resection. Patient had long-standing history of diverticulitis. Patient with risks of surgery including possible colostomy, wound infection and bleeding. Past Medical History Past Medical History: Asthma, Cancer, CVA/TIA, Fibromyalgia, GERD/Reflux, Osteoarthritis (OA) Additional Past Medical History / Comment(s): occ diff swallowing with freq. burping, hx. diverticulitis, HX rectal bleeding & stool in urine., TIA x 2 age 41 & 43-no residual effects, hx cervical cancer with surgery & chemo (1972)., hx ulcer age 22, osteoporosis., occasional UTI., Hx covid 2019., states mass on bowel. History of Any Multi-Drug Resistant Organisms: None Reported Past Surgical History: Breast Surgery, Hysterectomy, Orthopedic Surgery Additional Past Surgical History / Comment(s): rosana oophorectomy, sinus surgery, heel spur left foot, cyst removed from rt breast and vagina, colonoscopy,EGD. , valeria fundoplication (12/06/21) Past Anesthesia/Blood Transfusion Reactions: Previous Problems w/ Anesthesia Additional Past Anesthesia/Blood Transfusion Reaction / Comment(s): "takes a while to wake up" Past Psychological History: No Psychological Hx Reported Smoking Status: Former smoker Past Alcohol Use History: Occasional Additional Past Alcohol Use History / Comment(s): quit smoking 32 yrs ago, smoked for 10 yrs, was 3 PPD Past Drug Use History: None Reported - Past Family History Mother Family Medical History: Cancer Additional Family Medical History / Comment(s): breast Sister(s) Family Medical History: Cancer Additional Family Medical History / Comment(s): breast Brother(s) Family Medical History: Deep Vein Thrombosis (DVT), Myocardial Infarction (NC) Medications and Allergies Home Medications Medication Instructions Recorded Confirmed Type Aspirin [Adult Low Dose Aspirin EC] 81 mg PO HS 01/28/19 01/26/22 History Gabapentin [Neurontin] 100 mg PO QAM 01/28/19 01/26/22 History Pantoprazole Sodium 40 mg PO DAILY 11/05/20 01/26/22 History Vitamin B Complex 1 each PO DAILY 11/05/20 01/26/22 History Budesonide-Formot 160-4.5 Mcg 2 puff INHALATION BID PRN 12/01/21 01/26/22 History [Symbicort 160-4.5 Mcg Inhaler] Calcium Carbonate [Calcium] 1,200 mg PO BID 12/01/21 01/26/22 History Fiber Cap 600 mg PO BID 12/01/21 01/26/22 History Acetaminophen [Tylenol Extra 1,000 mg PO DIRECTED PRN 01/21/22 01/26/22 History Strength] Gabapentin [Neurontin] 200 mg PO HS 01/21/22 01/26/22 History Metamucil 1 dose PO DAILY 01/21/22 01/26/22 History Neomycin 500 mg PO 1300,1400,2300 01/21/22 01/26/22 History Allergies Allergy/AdvReac Type Severity Reaction Status Date / Time No Known Allergies Allergy Verified 01/26/22 09:15 Surgical - Exam Vital Signs Temp Pulse Resp BP Pulse Ox 97 F L 83 18 152/70 98 01/26/22 09:09 01/26/22 09:09 01/26/22 09:09 01/26/22 09:09 01/26/22 09:09 - General well developed, well nourished, no distress - Eyes PERRL - ENT normal pinna - Neck no masses - Respiratory normal expansion - Cardiovascular Rhythm: regular - Abdomen Abdomen: soft, non tender Assessment and Plan Assessment: History of diverticula is. We'll perform a low anterior resection.
[2022-01-26] MEDS ORDERED: NALOXONE 0.4 MG/ML 1 ML VIAL IV PRN (10:07)
--- NOTE | 2022-01-26 10:07 | P.ANPRN ---
Procedure Note - Anesthesia - Epidural/Spinal Epidural Continuous Time Out Performed: Yes Date of Procedure: 01/26/22 Procedure Start Time: 09:40 Procedure Stop Time: 09:50 Location of Patient: PreOp Indication: Requested by Surgeon Sedation Type: Sedate with meaningful contact maintained Preparation: Sterile Dressing Position: Sitting Catheter: Indwelling Needle Guage: 18 Injectate: Test Dose Lidocaine1.5% w/1:200,000 epi Blood Aspirated: No Pain Paresthesia on Injection Noted: No Events: Uneventful and Well Tolerated
[2022-01-26] MEDS ORDERED: ALVIMOPAN 12 MG CAPSULE PO ONE (10:09)
[2022-01-26] MEDS ORDERED: HEPARIN SODIUM,PORCINE 5,000 UNIT/ML 1 ML VIAL ONE (10:37)
[2022-01-26] MEDS ORDERED: GLYCOPYRROLATE 0.2 MG/ML 2 ML VIAL ONE (10:37)
[2022-01-26] MEDS ORDERED: NEOSTIGMINE 1 MG/ML 10 ML VIAL ONE (10:37)
[2022-01-26] MEDS ORDERED: ePHEDrine 50 MG/ML 1 ML VIAL ONE (10:37)
[2022-01-26] MEDS ORDERED: LIDOCAINE 2% INJ 20 MG/ML (2 ML VIAL) ONE (10:37)
[2022-01-26] MEDS ORDERED: SUCCINYLCHOLINE CHLORIDE 200 MG/10 ML VIAL IV ONE (10:37)
[2022-01-26] MEDS ORDERED: PROPOFOL 10 MG/ML 20 ML VIAL IV ONE (10:37)
[2022-01-26] MEDS ORDERED: fentaNYL (PF) 50 MCG/ML 2 ML AMP ONE (10:37)
[2022-01-26] MEDS ORDERED: ROCURONIUM 10 MG/ML (5 ML VIAL) IV ONE (10:37)
[2022-01-26] MEDS ORDERED: LACTATED RINGERS 1,000 ML IV ONE (11:39)
[2022-01-26] MEDS: ROPIVACAINE 250 MG, HYDROMORPHONE (PF) 5 MG in SODIUM CHLORIDE 0.9% 200 ML EPIDURAL PRN ×2 (12:14→13:10)
[2022-01-26] MEDS: ONDANSETRON 4 MG/2 ML VIAL IVP PRN (14:47)
[2022-01-26] MEDS: HEPARIN SODIUM,PORCINE/PF 5,000 UNIT/0.5 ML SYRINGE SQ SCH ×2 (15:46→23:59)
[2022-01-26] MEDS: D5-0.45% NACL WITH KCL 20MEQ/L 1,000 ML IV SCH (18:22)
[2022-01-26 18:24] LABS: African American GFR (CKD) >90 (>60 ml/min/1.73 sqM); Anion Gap 12 mmol/L; Blood Urea Nitrogen 13 mg/dL (7-17); Calcium 8.3 mg/dL (8.4-10.2); Carbon Dioxide 25 mmol/L (22-30); Chloride 103 mmol/L (98-107); Glucose 163 mg/dL (74-99); Non-African American GFR(CKD) >90 (>60 ml/min/1.73 sqM); Potassium 4.6 mmol/L (3.5-5.1); Sodium 140 mmol/L (137-145)
[2022-01-27] MEDS: ONDANSETRON 4 MG/2 ML VIAL IVP PRN (00:02)
[2022-01-27] MEDS: D5-0.45% NACL WITH KCL 20MEQ/L 1,000 ML IV SCH ×4 (02:31→21:38)
--- NOTE | 2022-01-27 06:34 | P.PN ---
Progress Note - Text Date: 01/27/2022 Time: 06:24 The patient is status post, low anterior resection, postoperative day number one. The patient has no complaints of nausea vomiting or headache. The patient does not complain of any lower extremity numbness or weakness. The epidural is running at[ 6] mL per hour. VAS 1-10. The epidural will be maintained and adjusted as needed.
[2022-01-27] MEDS: HEPARIN SODIUM,PORCINE/PF 5,000 UNIT/0.5 ML SYRINGE SQ SCH ×2 (08:31→15:41)
[2022-01-27] MEDS: ALVIMOPAN 12 MG CAPSULE PO SCH ×2 (08:31→21:41)
[2022-01-27] MEDS ORDERED: ONDANSETRON 4 MG/2 ML VIAL IVP PRN (10:34)
[2022-01-27] MEDS ORDERED: HYDROmorphone 0.5 MG/0.5 ML SYRINGE IVP PRN (10:59)
[2022-01-27] MEDS ORDERED: SYMBICORT 160-4.5 MCG INHALER INHALATION PRN (11:44)
[2022-01-27] MEDS: LACTATED RINGERS 1,000 ML IV SCH (12:06)
[2022-01-27] MEDS: SIMETHICONE 40 MG/0.6 ML DROPS 2,000 MG/30 ML BOTTLE PO SCH ×2 (12:32→18:02)
[2022-01-27 13:23] LABS: Basophils % (A) 0 %; Eosinophils % (A) 0 %; HGB 10.6 gm/dL (11.4-16.0); Hypochromasia Slight; Lymphocytes # (A) 1.5 k/uL (1.0-4.8); Lymphocytes % (A) 13 %; MCH 33.2 pg (25.0-35.0); Macrocytosis Slight; Mean Platelet Volume 7.3; Monocytes # (A) 0.6 k/uL (0-1.0); Monocytes % (A) 5 %; Neutrophils # (A) 9.4 k/uL (1.3-7.7); Neutrophils % (A) 80 %; Platelet Count 189 k/uL (150-450); RBC 3.19 m/uL (3.80-5.40); WBC 11.7 k/uL (3.8-10.6)
[2022-01-27 13:24] LABS: MCV 103.6 fL (80.0-100.0)
--- NOTE | 2022-01-27 14:21 | P.PN ---
Subjective Progress Note Date: 01/27/22 CHIEF COMPLAINT: History of diverticulitis HISTORY OF PRESENT ILLNESS: Patient is postop day #1 status post lower anterior resection. Patient had been rating her pain about a 6 out of 10. She had epidural in place. However, she's been complaining of severe dizziness nausea and vision changes. She also is complaining of gas pains in her upper chest and unable to burp. She becomes very dizzy with standing. Orthostatics were negative. She also has been reporting vision changes initially this has shown improvement. Her pupils were pinpoint. Anesthesia was contacted. They are holding the epidural for now and using IV Dilaudid for pain. Case was discussed also with medicine service. They've added neuro checks. Patient denies any slurred speech facial droop or any weakness or numbness in her extremities. Urine output adequate. Urine clear yellow. Afebrile. Heart rate 66 BP stable WBC is 11.7 hemoglobin 10.6 platelet 189 sodium 140 potassium 4.6 creatinine 0.59 Patient seen and examined with Dr. watson PHYSICAL EXAM: VITAL SIGNS: Reviewed. GENERAL: Well-developed in no acute distress. HEENT: No sclera icterus. Extraocular movements grossly intact. Moist buccal mucosa. Head is atraumatic, normocephalic. ABDOMEN: Soft. Nondistended. Incision site clean dry and intact NEUROLOGIC: Alert and oriented. Cranial nerves II through XII grossly intact. ASSESSMENT: 1. History of diverticulitis status post lower anterior resection PLAN: -Agree with holding epidural. This may be contributing to patient's symptoms of dizziness and nausea -Continue bedrest until dizziness improves -Zofran dose adjusted to every 6 hours -Simethicone drops added for gas pains -Change incisional dressing to Optifoam Silver -Patient did have bowel that was adhered to her bladder. At this time recommend continuing the Gordon catheter until discontinued by surgeon -Continue IV fluids -Continue clear liquid diet -DVT prophylaxis subcu heparin Physician Link Trainer note has been reviewed by physician. Signing provider agrees with the documented findings, assessment, and plan of care. Objective - Vital Signs Vital signs: Vital Signs Temp 98.4 F 01/27/22 08:00 Pulse 66 01/27/22 11:46 Resp 14 01/27/22 08:00 BP 118/68 01/27/22 11:46 Pulse Ox 99 01/27/22 08:00 FiO2 Intake & Output 01/26/22 01/27/22 01/27/22 18:59 06:59 18:59 Intake Total 1656 Output Total 90 600 Balance 1566 -600 Weight 68.9 kg Intake: IV 1656 Output: Urine 40 600 Estimated Blood Loss 50 Other: Voiding Method Indwelling Catheter - Labs CBC & Chem 7: 01/27/22 12:15 01/26/22 17:59 Labs: Abnormal Lab Results - Last 24 Hours (Table) 01/26/22 01/27/22 Range/Units 17:59 12:15 WBC 11.7 H (3.8-10.6) k/uL RBC 3.19 L (3.80-5.40) m/uL Hgb 10.6 L (11.4-16.0) gm/dL Hct 33.0 L (34.0-46.0) % MCV 103.6 H D (80.0-100.0) fL Neutrophils # 9.4 H (1.3-7.7) k/uL Glucose 163 H (74-99) mg/dL Calcium 8.3 L (8.4-10.2) mg/dL
[2022-01-27] MEDS ORDERED: METOCLOPRAMIDE 5 MG/ML 2 ML VIAL IVP PRN (14:50)
[2022-01-27] MEDS: PANTOPRAZOLE 40 MG/10 ML VIAL IVP SCH (15:42)
[2022-01-27] MEDS: GABAPENTIN 100 MG CAP PO SCH (21:42)
--- NOTE | 2022-01-27 22:43 | CONS ---
CONSULTATION REASON FOR CONSULTATION: Advice regarding asthma and other multiple medical issues requested by Surgery. HISTORY OF PRESENT ILLNESS: This is a 71-year-old woman with a past medical history of multiple medical issues, asthma, being followed by Dr. Renny Montes in the outpatient setting, underwent low anterior resection by Dr. Shabazz. There is no history of any fever, rigors. No history of headache, loss of consciousness, or seizures. PAST MEDICAL HISTORY: Reviewed include bronchial asthma. HOME MEDICATIONS: Again reviewed include Protonix. Doses and rest of the medications reviewed. ALLERGIES: None. FAMILY HISTORY: History of breast cancer. SOCIAL HISTORY: Occasional alcohol. Quit smoking. REVIEW OF SYSTEMS: A 14-point review of systems is negative except as mentioned earlier. PHYSICAL EXAMINATION: VITAL SIGNS: Pulse 68, blood pressure 118/60, respirations 14. HEENT: Conjunctivae normal. NECK: No JVD. CARDIOVASCULAR: S1 and S2 muffled. RESPIRATIONS: Breath sounds diminished at the bases. No rhonchi. ABDOMEN: Soft, status post surgery. LEGS: No edema. NERVOUS SYSTEM: No focal deficits. LABS: Glucose 163. ASSESSMENT: 1. Status post low anterior resection. 2. History of diverticulitis. 3. History of asthma. 4. History of fibromyalgia. 5. Multiple medical issues. RECOMMENDATIONS AND DISCUSSION: This is a 71-year-old woman, who presented with multiple complex medical issues. At this time, I recommend to continue the current medications. Resume the home medications. Pain management. Repeat labs. Closely follow with Surgery. DVT prophylaxis. Proton pump inhibitors. The patient may be asked to follow up with Dr. Renny Montes after discharge. Thank you, Dr. Shabazz. MMODL / IJN: [id number] /
[2022-01-28] MEDS: HEPARIN SODIUM,PORCINE/PF 5,000 UNIT/0.5 ML SYRINGE SQ SCH ×4 (00:31→23:23)
[2022-01-28] MEDS: SIMETHICONE 40 MG/0.6 ML DROPS 2,000 MG/30 ML BOTTLE PO SCH ×5 (00:32→20:36)
[2022-01-28] MEDS: D5-0.45% NACL WITH KCL 20MEQ/L 1,000 ML IV SCH ×3 (07:33→21:30)
[2022-01-28] MEDS: ALVIMOPAN 12 MG CAPSULE PO SCH ×2 (07:33→20:35)
[2022-01-28] MEDS: PANTOPRAZOLE 40 MG/10 ML VIAL IVP SCH (07:33)
[2022-01-28] MEDS: GABAPENTIN 100 MG CAP PO SCH ×2 (07:33→20:36)
--- NOTE | 2022-01-28 07:39 | P.PN ---
Progress Note - Text Progress Note Date: 01/28/22 ([id number]) Anesthesia Postop day #2 Status post low anterior resection with epidural day #3 Patient seen and examined. Doing well without complaint. Resting comfortably. VAS 6-7 out of 10. States this is rest able. Mild pruritus and mild vomiting now resolved. Ropivacaine 0.1% with Dilaudid 20 mcg/mL at 5 mL an hour. Afebrile. Denies motor block. Objective: Vital signs reviewed Lungs: Good chest excursion Abdomen: Appears nondistended Other: Epidural Site Intact without induration. Dressing intact Neuro: No apparent motor block. Sensory within normal limits. Assessment: Status post low anterior resection postop day #2 Plan: Continue current care with your medical management. Anticipate discontinue epidural tomorrow. Currently on heparin subcu every 8 this will need to be held for 6 hours prior to epidural pull. Vital signs are stable. Platelets are currently 189.
[2022-01-28 10:49] LABS: Basophils # (A) 0.03 X 10*3/uL (0.00-0.10); Basophils % (A) 0.3 %; Eosinophils % (A) 1.9 %; HCT 31.2 % (37.2-46.3); Immature Grans, Automated 0.3 %; Lymphocytes # (A) 2.13 X 10*3/uL (0.90-5.00); Lymphocytes % (A) 20.3 %; MCHC 32.1 g/dL (32.0-37.0); Mean Platelet Volume 11.1 fL (9.5-12.2); Monocytes # (A) 0.91 X 10*3/uL (0.20-1.00); Monocytes % (A) 8.7 %; NRBC Per 100 WBC 0 /100 WBCS (0.0-0.0); Neutrophils # (A) 7.21 X 10*3/uL (1.80-7.70); Neutrophils % (A) 68.5 %; Platelet Count 193 X 10*3/uL (140-440); RBC 3.03 X 10*6/uL (4.10-5.20); RDW 13.2 % (11.5-14.5); WBC 10.51 X 10*3/uL (4.50-10.00)
[2022-01-28 11:11] LABS: African American GFR (CKD) 101.7 (60.0-200.0); Albumin 3.2 g/dL (3.8-4.9); Albumin/Globulin Ratio 1.33 (1.60-3.17); Anion Gap 6.4 mmol/L (10.00-18.00); BUN/Creat Ratio 6.57 Ratio (12.00-20.00); Blood Urea Nitrogen 4.6 mg/dL (9.0-27.0); Calcium 8.1 mg/dL (8.7-10.3); Carbon Dioxide 28.6 mmol/L (20.0-27.5); Globulin 2.4 g/dL (1.6-3.3); Non-African American GFR(CKD) 87.8 (60.0-200.0); Potassium 4.7 mmol/L (3.5-5.5); Total Bilirubin 0.4 mg/dL (0.30-1.20); Total Protein 5.6 g/dL (6.2-8.2)
--- NOTE | 2022-01-28 13:18 | P.PN ---
Subjective Progress Note Date: 01/28/22 CHIEF COMPLAINT: History of diverticulitis HISTORY OF PRESENT ILLNESS: Patient is postop day #2 status post lower anterior resection. Patient's dizziness, nausea and itching have resolved. She currently has epidural in place for pain control. She reports that her pain is better. She's sitting up at bedside chair. Zofran was discontinued yesterday due to possible side effect of blurry vision. Patient does report that her vision is back to normal. She denies any nausea vomiting. She is tolerating clear liquids. Afebrile. WBC trending down to 10.5 one hemoglobin 10.0 platelets 193 sodium is 136 potassium is 4.7 creatinine 0.7 Patient seen and examined with Dr. watson PHYSICAL EXAM: VITAL SIGNS: Reviewed. GENERAL: Well-developed in no acute distress. HEENT: No sclera icterus. Extraocular movements grossly intact. Moist buccal mucosa. Head is atraumatic, normocephalic. ABDOMEN: Soft. Nondistended. Incisional dressing clean dry and intact NEUROLOGIC: Alert and oriented. Cranial nerves II through XII grossly intact. ASSESSMENT: 1. History of diverticulitis status post lower anterior resection PLAN: -Continue clear liquid diet -Continue epidural -Patient did have bowel that was adhered to her bladder. At this time recommend continuing the Gordon catheter until discontinued by surgeon -Continue IV fluids -Continue Entereg -Continue Reglan as needed for nausea. Zofran discontinued due to blurry vision which now has resolved. -Encouraged patient to increase activity level -Encouraged patient to use incentive spirometer -DVT prophylaxis subcu heparin and GI prophylaxis Protonix Physician Staffing Manager note has been reviewed by physician. Signing provider agrees with the documented findings, assessment, and plan of care. Objective - Vital Signs Vital signs: Vital Signs Temp 99.3 F 01/28/22 07:49 Pulse 82 01/28/22 07:49 Resp 16 01/28/22 07:49 BP 107/64 01/28/22 07:49 Pulse Ox 94 L 01/28/22 07:49 FiO2 Intake & Output 01/27/22 01/28/22 01/28/22 18:59 06:59 18:59 Intake Total 980 Output Total 1200 1900 Balance -220 -1900 Intake: Oral 980 Output: Urine 1200 1900 Other: Voiding Method Indwelling Catheter Indwelling Catheter Indwelling Catheter - Labs CBC & Chem 7: 09/23/22 05:57 01/28/22 05:57 Labs: Abnormal Lab Results - Last 24 Hours (Table) 01/27/22 01/28/22 01/28/22 Range/Units 12:15 05:57 05:57 WBC 11.7 H 10.51 H (3.8-10.6) k/uL RBC 3.19 L 3.03 L (3.80-5.40) m/uL Hgb 10.6 L 10.0 L (11.4-16.0) gm/dL Hct 33.0 L 31.2 L (34.0-46.0) % MCV 103.6 H D 103.0 H (80.0-100.0) fL MCH 33.0 H (27.0-32.0) pg Neutrophils # 9.4 H (1.3-7.7) k/uL Carbon Dioxide 28.6 H (20.0-27.5) mmol/L Anion Gap 6.40 L (10.00-18.00) mmol/L BUN 4.6 L (9.0-27.0) mg/dL BUN/Creatinine Ratio 6.57 L (12.00-20.00) Ratio Calcium 8.1 L (8.7-10.3) mg/dL Total Protein 5.6 L (6.2-8.2) g/dL Albumin 3.2 L (3.8-4.9) g/dL Albumin/Globulin Ratio 1.33 L (1.60-3.17) g/dL
[2022-01-28] MEDS: LACTATED RINGERS 1,000 ML IV SCH (16:06)
[2022-01-29] MEDS: D5-0.45% NACL WITH KCL 20MEQ/L 1,000 ML IV SCH ×3 (05:30→21:41)
[2022-01-29] MEDS: LACTATED RINGERS 1,000 ML IV SCH (07:29)
[2022-01-29] MEDS: ALVIMOPAN 12 MG CAPSULE PO SCH (07:33)
[2022-01-29] MEDS: PANTOPRAZOLE 40 MG/10 ML VIAL IVP SCH (08:14)
[2022-01-29] MEDS: GABAPENTIN 100 MG CAP PO SCH ×2 (08:15→21:39)
[2022-01-29] MEDS: SIMETHICONE 40 MG/0.6 ML DROPS 2,000 MG/30 ML BOTTLE PO SCH ×4 (08:15→21:38)
--- NOTE | 2022-01-29 09:32 | PN ---
PROGRESS NOTE SUBJECTIVE: This 71-year-old woman was admitted after low anterior resection. She is mildly confused today. No chest pain. No palpitations. No fever. OBJECTIVE: VITAL SIGNS: Pulse is 82, blood pressure 107/64, respirations 16. HEENT: Conjunctivae are normal. NECK: No JVD. CARDIOVASCULAR: S1 and S2. RESPIRATION: diminished bases. ABDOMEN: Soft, status post surgery. NERVOUS SYSTEM: Nonfocal. LABORATORY DATA: WBC 10.5. Other labs are noted. ASSESSMENT: 1. Status post low anterior resection. 2. Change in mental status, acute delirium. 3. History of diverticulitis. 4. History of asthma. 5. History of fibromyalgia. 6. Multiple medical issues. RECOMMENDATIONS: I recommend to continue current symptomatic treatment. Otherwise, DVT prophylaxis. Add vitamins. See orders for further details. Further recommendations to follow. MMTREL / IJN: [id number] / MTDD
--- NOTE | 2022-01-29 11:24 | P.PN ---
Subjective Progress Note Date: 01/29/22 Principal diagnosis: Diverticulitis Patient is doing well today. Her pain is well-controlled. Epidural was being removed. She had bowel movements starting yesterday. She was mildly nauseous yesterday. Pain 3 out of 10. Tolerating clear liquids. Objective - Vital Signs Vital signs: Vital Signs Temp 98.3 F 01/29/22 08:00 Pulse 73 01/29/22 08:00 Resp 16 01/29/22 08:00 BP 116/67 01/29/22 08:00 Pulse Ox 95 01/29/22 08:00 FiO2 Intake & Output 01/28/22 01/29/22 01/29/22 18:59 06:59 18:59 Intake Total 2616 Output Total 1500 1850 Balance 1116 -1850 Intake: Intake, IV Titration 1536 Amount D5-0.45% NaCl with KCl 1500 20Meq/l 1,000 ml @ 125 mls/hr IV .Q8H [facility] Rx#: [id number] Ropivacaine 250 mg 36 Hydromorphone (Pf) 5 mg In Sodium Chloride 0.9% 200 ml @ Per Protocol EPIDURAL .Q0M PRN Rx#: [id number] Oral 1080 Output: Urine 1500 1850 Other: Voiding Method Indwelling Catheter Indwelling Catheter Indwelling Catheter # Bowel Movements 1 - Exam Abdomen: Soft, nondistended, mild tenderness, incision clean and dry - Labs CBC & Chem 7: 01/28/22 05:57 01/28/22 05:57 Assessment and Plan (1) Diverticulitis Narrative/Plan: Patient doing well at this time. Continue advancing diet slowly. Ambulate. Remove Gordon catheter and epidural. Current Visit: Yes Status: Acute Code(s): K57.92 - DVTRCLI OF INTEST, PART UNSP, W/O PERF OR ABSCESS W/O BLEED SNOMED Code(s): 426339550
[2022-01-29 11:35] LABS: Basophils # (A) 0.02 X 10*3/uL (0.00-0.10); Basophils % (A) 0.2 %; Eosinophils # (A) 0.38 X 10*3/uL (0.04-0.35); Eosinophils % (A) 3.5 %; HCT 30.9 % (37.2-46.3); HGB 10.1 g/dL (12.0-15.0); Immature Grans, Automated 0.3 %; Lymphocytes # (A) 1.33 X 10*3/uL (0.90-5.00); Lymphocytes % (A) 12.2 %; MCH 32.8 pg (27.0-32.0); MCHC 32.7 g/dL (32.0-37.0); MCV 100.3 fL (80.0-97.0); Mean Platelet Volume 10.4 fL (9.5-12.2); Monocytes # (A) 0.81 X 10*3/uL (0.20-1.00); Monocytes % (A) 7.5 %; NRBC Per 100 WBC 0 /100 WBCS (0.0-0.0); Neutrophils # (A) 8.29 X 10*3/uL (1.80-7.70); Neutrophils % (A) 76.3 %; Platelet Count 189 X 10*3/uL (140-440); RBC 3.08 X 10*6/uL (4.10-5.20); WBC 10.86 X 10*3/uL (4.50-10.00)
[2022-01-29 12:08] LABS: Anion Gap 5.3 mmol/L (10.00-18.00); BUN/Creat Ratio 3.83 Ratio (12.00-20.00); Blood Urea Nitrogen 2.3 mg/dL (9.0-27.0); Calcium 7.9 mg/dL (8.7-10.3); Carbon Dioxide 28.7 mmol/L (20.0-27.5); Non-African American GFR(CKD) 92.4 (60.0-200.0); Potassium 4.6 mmol/L (3.5-5.5)
[2022-01-29] MEDS: FOLIC ACID 1 MG TAB PO SCH (12:33)
[2022-01-29] MEDS: HEPARIN SODIUM,PORCINE/PF 5,000 UNIT/0.5 ML SYRINGE SQ SCH ×2 (12:33→16:23)
[2022-01-29] MEDS: MULTIVITAMINS, THERA 1 EACH TAB PO SCH (12:34)
[2022-01-29] MEDS: THIAMINE 100 MG TAB PO SCH (12:34)
[2022-01-29] MEDS: KETOROLAC 15 MG/ML 1 ML VIAL IVP SCH ×2 (12:34→17:34)
[2022-01-29] MEDS: HYDROcodone/APAP 5-325MG 1 EACH TAB PO PRN ×2 (16:23→21:39)
[2022-01-30] MEDS: KETOROLAC 15 MG/ML 1 ML VIAL IVP SCH ×4 (00:06→17:31)
[2022-01-30] MEDS: HEPARIN SODIUM,PORCINE/PF 5,000 UNIT/0.5 ML SYRINGE SQ SCH ×3 (00:07→17:32)
--- NOTE | 2022-01-30 06:09 | PN ---
PROGRESS NOTE SUBJECTIVE: This is a 71-year-old woman who was admitted after low anterior resection, is being closely monitored. The patient is complaining of some pain. No chest pain. No palpitation. PHYSICAL EXAMINATION: VITAL SIGNS: Pulse is 73, blood pressure 116/66, respirations 16. HEENT: Conjunctivae normal. NECK: No JVD. CARDIOVASCULAR: S1 and S2 muffled. RESPIRATIONS: Breath sounds diminished at the bases. ABDOMEN: Soft, status post surgery. LABS: Hemoglobin 10.1, other labs are noted. ASSESSMENT: 1. Status post low anterior resection. 2. Change in mental status, acute delirium. 3. History of diverticulitis. 4. History of asthma. 5. History of fibromyalgia. 6. Multiple medical issues. RECOMMENDATIONS AND DISCUSSION: I recommend to continue current medications, and symptomatic treatment. Otherwise, closely follow with Surgery. Further recommendations to follow. See orders for further details. MMODL / IJN: [id number] /
[2022-01-30] MEDS: D5-0.45% NACL WITH KCL 20MEQ/L 1,000 ML IV SCH ×3 (06:12→20:59)
--- NOTE | 2022-01-30 07:07 | P.PN ---
Progress Note - Text 01/29/22 1011am 71-year-old female status post bowel surgery with , patient has an epidural catheter running at 6 mL an hour with a VAS of 2. has no motor or sensory deficits. Patient has been ambulating without a problem. Plan to discontinue the epidural nurse informed
[2022-01-30] MEDS: LACTATED RINGERS 1,000 ML IV SCH (07:42)
[2022-01-30] MEDS: PANTOPRAZOLE 40 MG/10 ML VIAL IVP SCH (08:40)
[2022-01-30] MEDS: GABAPENTIN 100 MG CAP PO SCH ×2 (08:40→20:58)
[2022-01-30] MEDS: SIMETHICONE 40 MG/0.6 ML DROPS 2,000 MG/30 ML BOTTLE PO SCH ×4 (08:41→20:59)
[2022-01-30] MEDS: HYDROcodone/APAP 5-325MG 1 EACH TAB PO PRN (08:51)
--- NOTE | 2022-01-30 11:40 | P.PN ---
Subjective Progress Note Date: 01/30/22 Principal diagnosis: Diverticulitis Patient complaining of some nausea and bloating. Says she feels some upper abdominal discomfort this morning. No vomiting. Still having loose stools. She is afebrile. Objective - Vital Signs Vital signs: Vital Signs Temp 98.1 F 01/30/22 08:05 Pulse 81 01/30/22 08:05 Resp 18 01/30/22 08:05 BP 130/74 01/30/22 08:05 Pulse Ox 98 01/30/22 08:05 FiO2 Intake & Output 01/29/22 01/30/22 01/30/22 18:59 06:59 18:59 Output Total 1600 Balance -1600 Output: Urine 1600 Other: Voiding Method Indwelling Catheter Toilet # Voids 3 6 # Bowel Movements 1 3 - Exam Abdomen: Soft, mild distention, mild diffuse tenderness, incision clean and dry - Labs CBC & Chem 7: 01/29/22 07:51 01/29/22 07:51 Labs: Abnormal Lab Results - Last 24 Hours (Table) 01/29/22 Range/Units 07:51 Carbon Dioxide 28.7 H (20.0-27.5) mmol/L Anion Gap 5.30 L (10.00-18.00) mmol/L BUN 2.3 L (9.0-27.0) mg/dL BUN/Creatinine Ratio 3.83 L (12.00-20.00) Ratio Glucose 120 H (70-110) mg/dL Calcium 7.9 L (8.7-10.3) mg/dL Assessment and Plan (1) Diverticulitis Narrative/Plan: Patient with some abdominal bloating and nausea. Some increased discomfort today. We'll switch back to nothing by mouth for now. Recheck labs tomorrow. Ambulate. Current Visit: Yes Status: Acute Code(s): K57.92 - DVTRCLI OF INTEST, PART UNSP, W/O PERF OR ABSCESS W/O BLEED SNOMED Code(s): 571602403
[2022-01-30] MEDS: MULTIVITAMINS, THERA 1 EACH TAB PO SCH (12:05)
[2022-01-30] MEDS: THIAMINE 100 MG TAB PO SCH (12:05)
[2022-01-30] MEDS: FOLIC ACID 1 MG TAB PO SCH (12:05)
--- NOTE | 2022-01-30 20:06 | PN ---
PROGRESS NOTE SUBJECTIVE: This is a 71-year-old woman, who was admitted after low anterior resection, is being closely monitored. The patient complains of abdominal pain. No chest pain. No palpitation. PHYSICAL EXAMINATION: VITAL SIGNS: Pulse is 74, blood pressure ntd respirations 17. HEENT: Conjunctivae normal. CARDIOVASCULAR: S1, S2 muffled. RESPIRATION: Clear to auscultation. ABDOMEN: Soft. Status post surgery. NERVOUS SYSTEM: Nonfocal. LABORATORY DATA: WBC 10.8, hemoglobin 10.1. ASSESSMENT: 1. Status post low anterior resection. 2. Change in mental status and acute delirium. 3. History of diverticulitis. 4. History of asthma. 5. History of fibromyalgia. 6. Multiple medical issues. RECOMMENDATIONS: I recommend to continue current medications, symptomatic treatment. Otherwise, at this time, I would recommend continue with DVT prophylaxis. Closely follow with surgery. Continue symptomatic treatment. Further recommendations to follow. The patient had minimal blood in the rectum, being addressed by Surgery. MMODL / IJN: [id number] / DESTIN
[2022-01-31] MEDS: KETOROLAC 15 MG/ML 1 ML VIAL IVP SCH ×2 (06:00)
[2022-01-31] MEDS: D5-0.45% NACL WITH KCL 20MEQ/L 1,000 ML IV SCH ×3 (06:01→22:06)
[2022-01-31] MEDS: LACTATED RINGERS 1,000 ML IV SCH (07:11)
[2022-01-31] MEDS: HEPARIN SODIUM,PORCINE/PF 5,000 UNIT/0.5 ML SYRINGE SQ SCH ×4 (08:43→23:17)
[2022-01-31] MEDS: SIMETHICONE 40 MG/0.6 ML DROPS 2,000 MG/30 ML BOTTLE PO SCH ×4 (08:43→20:45)
[2022-01-31] MEDS: GABAPENTIN 100 MG CAP PO SCH ×2 (08:44→20:46)
[2022-01-31] MEDS: PANTOPRAZOLE 40 MG/10 ML VIAL IVP SCH (08:44)
--- NOTE | 2022-01-31 11:09 | P.PN ---
Subjective Progress Note Date: 01/31/22 CHIEF COMPLAINT: History of diverticulitis HISTORY OF PRESENT ILLNESS: Patient is postop day #5 status post lower anterior resection. Patient continues to complain of nausea and some abdominal bloating. She is having flatus. She rates her pain about a 5-6 out of 10. Her last bowel movement was yesterday she reports that it was bloody. She is currently having sips of clears due to the abdominal bloating and nausea. She reports that her pain is getting better each day. She denies any difficulty urinating. Afebrile. Labs for today are pending Patient seen and examined with Dr. watson PHYSICAL EXAM: VITAL SIGNS: Reviewed. GENERAL: Well-developed in no acute distress. HEENT: No sclera icterus. Extraocular movements grossly intact. Moist buccal mucosa. Head is atraumatic, normocephalic. ABDOMEN: Soft. Mildly distended Incisional dressing clean dry and intact. Mild tenderness on the right side of the abdomen NEUROLOGIC: Alert and oriented. Cranial nerves II through XII grossly intact. ASSESSMENT: 1. History of diverticulitis status post lower anterior resection PLAN: -Patient can have sips of clears -Continue IV fluids -Change Reglan scheduled for her nausea. Zofran had caused blurry vision. -Encouraged patient to increase activity level -Encouraged patient to use incentive spirometer -DVT prophylaxis subcu heparin and GI prophylaxis Protonix Physician Fuller Brush Worker note has been reviewed by physician. Signing provider agrees with the documented findings, assessment, and plan of care. Objective - Vital Signs Vital signs: Vital Signs Temp 97.8 F 01/31/22 08:00 Pulse 72 01/31/22 08:00 Resp 16 01/31/22 09:44 BP 137/68 01/31/22 08:00 Pulse Ox 99 01/31/22 08:00 FiO2 Intake & Output 01/30/22 01/31/22 01/31/22 18:59 06:59 18:59 Intake Total 200 Balance 200 Intake: Oral 200 Other: Voiding Method Toilet # Voids 6 3 1 # Bowel Movements 2 - Labs CBC & Chem 7: 01/29/22 07:51 01/29/22 07:51
[2022-01-31 11:27] LABS: Anion Gap 8.5 mmol/L (10.00-18.00); BUN/Creat Ratio 4.28 Ratio (12.00-20.00); Blood Urea Nitrogen 2.6 mg/dL (9.0-27.0); Calcium 8.4 mg/dL (8.7-10.3); Carbon Dioxide 26.7 mmol/L (20.0-27.5); Non-African American GFR(CKD) 92.3 (60.0-200.0); Potassium 4.1 mmol/L (3.5-5.5)
[2022-01-31 11:58] LABS: Basophils # (A) 0.03 X 10*3/uL (0.00-0.10); Basophils % (A) 0.4 %; Eosinophils # (A) 0.43 X 10*3/uL (0.04-0.35); Eosinophils % (A) 5.5 %; HCT 30.2 % (37.2-46.3); HGB 10.1 g/dL (12.0-15.0); Immature Grans, Automated 0.8 %; Lymphocytes # (A) 1.19 X 10*3/uL (0.90-5.00); Lymphocytes % (A) 15.3 %; MCH 32.8 pg (27.0-32.0); MCHC 33.4 g/dL (32.0-37.0); MCV 98.1 fL (80.0-97.0); Mean Platelet Volume 10.4 fL (9.5-12.2); Monocytes # (A) 0.51 X 10*3/uL (0.20-1.00); Monocytes % (A) 6.5 %; NRBC Per 100 WBC 0 /100 WBCS (0.0-0.0); Neutrophils # (A) 5.58 X 10*3/uL (1.80-7.70); Neutrophils % (A) 71.5 %; Platelet Count 253 X 10*3/uL (140-440); RBC 3.08 X 10*6/uL (4.10-5.20); RDW 13.2 % (11.5-14.5)
[2022-01-31] MEDS: THIAMINE 100 MG TAB PO SCH (11:59)
[2022-01-31] MEDS: MULTIVITAMINS, THERA 1 EACH TAB PO SCH (11:59)
[2022-01-31] MEDS: FOLIC ACID 1 MG TAB PO SCH (11:59)
[2022-01-31] MEDS: METOCLOPRAMIDE 5 MG/ML 2 ML VIAL IVP SCH ×3 (11:59→23:17)
[2022-01-31] MEDS: HYDROcodone/APAP 5-325MG 1 EACH TAB PO PRN ×2 (16:40→22:06)
[2022-02-01 03:52] VITALS: TEMP 98
[2022-02-01] MEDS: D5-0.45% NACL WITH KCL 20MEQ/L 1,000 ML IV SCH ×2 (04:50→13:43)
[2022-02-01] MEDS: METOCLOPRAMIDE 5 MG/ML 2 ML VIAL IVP SCH ×2 (05:46→13:43)
[2022-02-01] MEDS: HYDROcodone/APAP 5-325MG 1 EACH TAB PO PRN (05:46)
[2022-02-01] MEDS: LACTATED RINGERS 1,000 ML IV SCH (06:21)
[2022-02-01 07:52] VITALS: BP 128/69; PULSE 74; RESP 16
[2022-02-01] MEDS: SIMETHICONE 40 MG/0.6 ML DROPS 2,000 MG/30 ML BOTTLE PO SCH ×2 (10:45→13:41)
[2022-02-01] MEDS: HEPARIN SODIUM,PORCINE/PF 5,000 UNIT/0.5 ML SYRINGE SQ SCH (10:45)
[2022-02-01] MEDS: GABAPENTIN 100 MG CAP PO SCH (10:45)
[2022-02-01] MEDS: PANTOPRAZOLE 40 MG/10 ML VIAL IVP SCH (10:45)
--- NOTE | 2022-02-01 11:00 | PN ---
PROGRESS NOTE SUBJECTIVE: This 71-year-old woman who was admitted after low anterior resection complains of nausea today. No chest pain, no palpitations. No hallucinations. PHYSICAL EXAMINATION: VITAL SIGNS: Pulse 72, blood pressure 130/68, respirations 16. CHEST: Clear to auscultation. CARDIOVASCULAR: S1, S2. ABDOMEN: Soft status post surgery. NERVOUS SYSTEM: No focal deficits. LABS: Reviewed, hemoglobin 10.1 and BUN is 2.6. ASSESSMENT: 1. Status post low anterior resection. 2. Change in mental status and acute delirium. 3. History of diverticulitis. 4. Multiple medical issues. RECOMMENDATIONS: Recommended to continue current medications, continue with incentive spirometry. DVT prophylaxis. Closely follow with surgery. IV Protonix. Further recommendations to follow. MMODL / IJN: [id number] /
--- NOTE | 2022-02-01 11:14 | P.OP ---
Date of Procedure: 01/26/22 Preoperative Diagnosis: Diverticulitis Postoperative Diagnosis: Diverticulitis Procedure(s) Performed: Sigmoid resection, low anterior resection Anesthesia: GARRETT Surgeon: Guido Shabazz Estimated Blood Loss (ml): 25 Pathology: other (Sigmoid colon) Condition: stable Disposition: PACU Description of Procedure: DESCRIPTION OF PROCEDURE: The patient was placed on the operating table in the supine position. Patient received a general anesthesia. Patient was then placed in the dorsal lithotomy position. The patients abdomen was prepped and draped in the usual sterile fashion. Through a low midline incision, the abdomen was entered. The Murdock retractor was placed in the wound. The stomach appeared normal. The small bowel appeared normal. The liver appeared normal. The right colon and transverse colon appeared normal. On the left colon, there was an extensive diverticulosis noted. The sigmoid colon was then mobilized by dividing the white line of Toldt with electrocautery. At this point, the proximal sigmoid colon was transected with a GI stapler after a window had been made in the mesentery. The distal sigmoid colon was then dissected. Mesentery was taken down between Mili clamps and ligated with #0 silk ties. At a point beyond the lesion, the bowel was then transected with a Proximate stapler. This was then removed. The splenic flexure was then taken down in order to provide adequate lengthening of the sigmoid colon. At this point, the auto purse-string suture device was placed across the proximal colon and fired. The colon was then opened. The 29 mm EEA anvil was then placed into the colon and then the purse-string was secured. The EEA stapler device was then placed in the patients anus and passed into the rectum. The nail for the EEA was then brought out through the distal rectum and then attached to the anvil. The EEA stapler device was then fired. The anastomosis was inspected. There were 2 good donuts of tissue removed from the EEA stapler. The anastomosis was then tested under water and there was no air leak seen. At this point the abdomen was then irrigated. There was no bleeding seen. The fascia was then closed with double stranded #1 PDS. The skin was closed with luisa. The patient tolerated the procedure well.
[2022-02-01] MEDS: THIAMINE 100 MG TAB PO SCH (13:40)
[2022-02-01] MEDS: MULTIVITAMINS, THERA 1 EACH TAB PO SCH (13:40)
[2022-02-01] MEDS: FOLIC ACID 1 MG TAB PO SCH (13:40)
--- NOTE | 2022-02-01 13:41 | P.DS ---
Providers Date of admission: 01/26/22 08:38 Expected date of discharge: 02/01/22 Attending physician: Guido Shabazz Consults: 01/26/22 11:55 Consult Physician Routine Consulting Provider: Shaquille Rivers Consult Reason/Comments: Medical management Do you want consulting provider notified?: Yes Primary care physician: Renny [facility] Hospital Course: Discharge diagnosis 1. History of diverticulitis status post lower anterior resection Hospital course This is a 71-year-old female with a known history of diverticulitis. She is status post lower anterior resection. Patient tolerated surgery well. Her pain is controlled. She is tolerating full liquid diet. She did have a bowel movement and flatus. She has been up and ambulating. She is afebrile. She is stable for discharge. Please refer to chart for any further details. Physician Customer Service Specialist note has been reviewed by physician. Signing provider agrees with the documented findings, assessment, and plan of care. Patient Condition at Discharge: Stable Plan - Discharge Summary Discharge Rx Participant: No New Discharge Prescriptions: New HYDROcodone/APAP 5-325MG [[place] 5-325] 1 tab PO Q6HR PRN 3 Days #12 tab PRN Reason: Pain Continue Gabapentin [Neurontin] 100 mg PO QAM Aspirin [Adult Low Dose Aspirin EC] 81 mg PO HS Calcium Carbonate [Calcium] 1,200 mg PO BID Gabapentin [Neurontin] 200 mg PO HS Metamucil 1 dose PO DAILY #0 Pantoprazole Sodium 40 mg PO DAILY Vitamin B Complex 1 each PO DAILY Budesonide-Formot 160-4.5 Mcg [Symbicort 160-4.5 Mcg Inhaler] 2 puff INHALATION BID PRN PRN Reason: sob Fiber Cap 600 mg PO BID #0 Discontinued Acetaminophen [Tylenol Extra Strength] 1,000 mg PO DIRECTED PRN PRN Reason: Pain Neomycin 500 mg PO 1300,1400,2300 Discharge Medication List Aspirin [Adult Low Dose Aspirin EC] 81 mg PO HS 01/28/19 [History] Gabapentin [Neurontin] 100 mg PO QAM 01/28/19 [History] Pantoprazole Sodium 40 mg PO DAILY 11/05/20 [History] Vitamin B Complex 1 each PO DAILY 11/05/20 [History] Budesonide-Formot 160-4.5 Mcg [Symbicort 160-4.5 Mcg Inhaler] 2 puff INHALATION BID PRN 12/01/21 [History] Calcium Carbonate [Calcium] 1,200 mg PO BID 12/01/21 [History] Gabapentin [Neurontin] 200 mg PO HS 01/21/22 [History] Fiber Cap 600 mg PO BID #0 02/01/22 [Rx] HYDROcodone/APAP 5-325MG [[place] 5-325] 1 tab PO Q6HR PRN 3 Days #12 tab 02/01/22 [Rx] Metamucil 1 dose PO DAILY #0 02/01/22 [Rx] Follow up Appointment(s)/Referral(s): [facility]iting Nurse, [NON-STAFF] - As Needed Guido Shabazz MD [STAFF PHYSICIAN] - 1 Week Activity/Diet/Wound Care/Special Instructions: No driving while taking [place] No lifting over 10 pounds Shower daily. No soaking or tub baths for 2 weeks Very light activity until you are reevaluated at your follow up appointment with your surgeon Continue full liquid diet until seen by surgeon Discharge Disposition: HOME SELF-CARE
[2022-02-01 14:58] VITALS: BMI 31.7
--- NOTE | 2022-02-02 09:39 | PN ---
PROGRESS NOTE SUBJECTIVE: This is a 71-year-old woman who was admitted with low anterior resection, had some nausea yesterday. Today is feeling much better. No chest pain. No palpitation. PHYSICAL EXAMINATION: VITAL SIGNS: Pulse is 74, blood pressure 120/60, respirations 16. HEENT: Conjunctivae normal. NECK: No JVD. CARDIOVASCULAR: S1, S2 muffled. RESPIRATION: Breath sounds diminished at the bases. ABDOMEN: Soft, status post surgery. LABS: Reviewed. ASSESSMENT: 1. Status post low anterior resection. 2. Change in mental status, acute delirium, improved. 3. History of diverticulitis. 4. Multiple medical issues. RECOMMENDATIONS AND DISCUSSION: Recommend to continue current management and symptomatic treatment. Continue with DVT prophylaxis. Continue with rest of medications. Prognosis guarded. Further recommendations to follow. MMODL / IJN: [id number] /
== END 2022-02-01 15:03 | disposition home health service (06) | DRG 331 ==
LOC: 2ORMAIN 08:38 → 4SSUR 12:01
PROVIDERS: ADMIT Surgery; ATTEND Surgery
PROC: 0DBN0ZZ Excision of Sigmoid Colon, Open Approach (ICD-10-PCS; principal; 2022-01-26 10:25)
PROC: 0DBP0ZZ Excision of Rectum, Open Approach (ICD-10-PCS; principal; 2022-01-26 10:25)
DX: K57.32 Diverticulitis of large intestine without perforation or abscess without bleeding (principal); J45.909 Unspecified asthma, uncomplicated; L29.9 Pruritus, unspecified; R42 Dizziness and giddiness; H53.8 Other visual disturbances; R11.2 Nausea with vomiting, unspecified; R41.0 Disorientation, unspecified; T45.0X5A Adverse effect of antiallergic and antiemetic drugs, initial encounter; M79.7 Fibromyalgia; M81.0 Age-related osteoporosis without current pathological fracture; K21.9 Gastro-esophageal reflux disease without esophagitis; M19.90 Unspecified osteoarthritis, unspecified site; Z79.82 Long term (current) use of aspirin; Z79.899 Other long term (current) drug therapy; Z86.73 Personal history of transient ischemic attack (TIA), and cerebral infarction without residual deficits; Z87.891 Personal history of nicotine dependence; Z86.16 Personal history of COVID-19; Z92.21 Personal history of antineoplastic chemotherapy; Z87.440 Personal history of urinary (tract) infections; Z87.11 Personal history of peptic ulcer disease; Z83.2 Family history of diseases of the blood and blood-forming organs and certain disorders involving the immune mechanism; Z82.49 Family history of ischemic heart disease and other diseases of the circulatory system
CPT/HCPCS: 80048; 80053; 85025; 86850; 86900; 86901; 88307; 94760

== ENCOUNTER → 2022-03-24 | Outpatient (CLI) | payer MEDICARE ==
--- NOTE | 2022-03-25 08:30 | MM ---
Reason for Exam: Screening (asymptomatic). Last mammogram was performed 1 year(s) and 2 month(s) ago. Patient History: Menarche at age 15. Patient has no children. Left ovary removed at age 41. Right ovary removed at age 41. Hysterectomy at age 22. Postmenopausal. Mother had breast cancer, age 60. Sister had breast cancer, age 67. Risk Values: Lolly 5 year model risk: 5.5%. NCI Lifetime model risk: 14.5%. Prior Study Comparison: 12/26/2019 Bilateral MG 3D screening mammo w/cad, [facility]. 01/26/2021 Bilateral MG screening mammo w CAD - 2, [facility]. Tissue Density: There are scattered fibroglandular densities. Findings: Analyzed By CAD. There is no suspicious group of microcalcifications or new suspicious mass in either breast. Overall Assessment: Benign, BI-RAD 2 Management: Screening Mammogram of both breasts in 1 year. A clinical breast exam by your physician is recommended on an annual basis and results should be correlated with mammographic findings. Electronically signed and approved by: Joe Jones M.D. Radiologis
== END | disposition home or self-care (01) ==
LOC: RADMAMWWP 15:28
PROVIDERS: ATTEND Family Medicine
DX: Z12.31 Encounter for screening mammogram for malignant neoplasm of breast (principal); Z78.0 Asymptomatic menopausal state; Z80.3 Family history of malignant neoplasm of breast
CPT/HCPCS: 77063; 77067

== ENCOUNTER → 2022-11-16 | Outpatient (CLI) | payer MEDICARE ==
--- NOTE | 2022-11-17 07:41 | BD ---
EXAMINATION TYPE: Axial Bone Density DATE OF EXAM: 11/16/2022 CLINICAL HISTORY: 72 years old Female. ICD-10 CODE: Z78.0 ASYMPTOMATIC MENOPAUSAL STATE Height: 4 ft 10 in Weight: 170 FRAX RISK QUESTIONS: Alcohol (3 or more units per day): no Family History (Parent hip fracture): no Glucocorticoids (More than 3mos): no (Ex: prednisone, prednisolone, methylprednisolone, dexamethasone, and hydrocortisone). History of Fracture in Adulthood: yes Secondary Osteoporosis: 1. Type 1 Diabetes: no 2. Hyperthyroidism: no 3. Menopause before 45: yes 4. Malnutrition: no 5. Chronic liver disease: no Rheumatoid Arthritis: no Current Tobacco Use: no RISK FACTORS HISTORY OF: Surgery to Spine/Hip(right/left)/Wrist (right/left): no Family History of Osteoporosis: yes Active: yes Diet low in dairy products/other sources of calcium: no Postmenopausal woman: yes Take estrogen and/or progesterone medications: no Lost more than 2 inches in height since high school: no Frequent falls: no Poor Health: good Hyperparathyroidism: no Adrenal Insufficiency: no MEDICATIONS: Additional Medications: gabapentin, omeprazole Additional History: EXAM MEASUREMENTS: Bone mineral densitometry was performed using the weave energy System. Bone mineral density as measured about the Lumbar spine is: ----- L1-L4(G/cm2): 1.164 T Score Values are as follows: ----- L1: -1.9 ----- L2: -1.4 ----- L3: 0.7 ----- L4: 2.2 ----- L1-L4: -0.1 Z Score Values are as follows: ----- L1: -0.6 ----- L2: -0.1 ----- L3: 2.0 ----- L4: 3.5 ----- L1-L4: baseline Bone mineral density about the R hip (g/cm2): 0.750 Bone mineral density about the L hip (g/cm2): 0.779 T Score values are as follows: -----R Neck: -2.1 -----L Neck: -1.9 -----R Total: -0.8 -----L Total: -0.8 Z Score values are as follows: -----R Neck: -0.6 -----L Neck: -0.4 -----R Total: 0.5 -----L Total: 0.4 baseline FRAX%s: The graph provided illustrates a 10.7 % chance for a major osteoporotic fx and a 2.1 % chance for the hips probability for fx in 10 years time. IMPRESSION: Osteopenia (T Score between -2.5 and -1). There is slightly increased risk of fracture and the patient may be considered for treatment. Re-Screen 2-5 years. NOTE: T-SCORE=SD OF THE YOUNG ADULT MEAN.
== END | disposition home or self-care (01) ==
LOC: RADBDWWP 09:43
PROVIDERS: ATTEND Family Medicine
DX: M85.89 Other specified disorders of bone density and structure, multiple sites (principal); Z78.0 Asymptomatic menopausal state
CPT/HCPCS: 77080

== ENCOUNTER → 2023-04-14 | Outpatient (CLI) | payer MEDICARE ==
--- NOTE | 2023-04-18 11:15 | MM ---
Reason for Exam: Screening (asymptomatic). Last mammogram was performed 1 year(s) and 1 month(s) ago. Patient History: Menarche at age 15. Patient has no children. Left ovary removed at age 41. Right ovary removed at age 41. Hysterectomy at age 22. Postmenopausal. Mother had breast cancer, age 60. Sister had breast cancer, age 67. Risk Values: Lolly 5 year model risk: 5.5%. NCI Lifetime model risk: 13.9%. Prior Study Comparison: 12/26/2019 Bilateral MG 3D screening mammo w/cad, [facility]. 01/26/2021 Bilateral MG screening mammo w CAD - 2, [facility]. 03/24/2022 Bilateral MG 3D screening mammo w/cad, [facility]. Tissue Density: The breast tissue is almost entirely fat. Findings: Analyzed By CAD. Pattern appears stable. Scattered benign-appearing calcifications are present bilaterally. No significant interval change is evident. No suspicious groups of microcalcifications, spiculated or lobular masses, architectural distortion or other secondary signs of malignancy are mammographically apparent. Overall Assessment: Benign, BI-RAD 2 Management: Screening Mammogram of both breasts in 1 year. A negative mammogram report should not preclude additional follow up of suspicious palpable abnormalities. Patient should continue monthly self breast exam. A clinical breast exam by your physician is recommended on an annual basis and results should be correlated with mammographic findings. Electronically signed and approved by: Juanpablo Palacio D.O. Radiologis
== END | disposition home or self-care (01) ==
LOC: RADMAMWWP 11:43
PROVIDERS: ATTEND Family Medicine
DX: Z12.31 Encounter for screening mammogram for malignant neoplasm of breast (principal); Z78.0 Asymptomatic menopausal state; Z80.3 Family history of malignant neoplasm of breast
CPT/HCPCS: 77063; 77067